=== PATIENT | male | born 1935 | race Caucasian/White ===

== ENCOUNTER 2020-08-06 18:33 | Emergency (ER) | payer SELFPAY ==
[2020-08-06 19:00] VITALS: BP 160/93; PULSE 82; TEMP 97.5
== END 2020-08-06 22:14 | disposition home or self-care (01) ==
LOC: FER 18:33
DX: R05 Cough (principal)
CPT/HCPCS: 71045-TC-FY; 99284-25; C9803; U0003

== ENCOUNTER 2020-08-17 19:39 | Inpatient (IN) | payer MEDICARE ==
[2020-08-17 21:11] LABS: BASO % 0.4 % (0-2.0); EOS % 0.2 % (0-4.5); HEMATOCRIT 42.4 % (35.4-49); HEMOGLOBIN 14.3 GM/dl (11.7-16.9); LYMPH % 9.4 % (8-40); MCH 30.1 pg (25.7-33.7); MCHC 33.7 g/dl (32.0-35.9); MEAN CELL VOLUME 89.4 fl (80-96); MEAN PLT VOLUME 8.1 fl (7.5-11.1); MONO % 5.4 % (3.8-10.2); NEUT % 84.6 % (42.8-82.8); PLATELET COUNT 219 K/MM3 (134-434); RBC 4.74 M/mm3 (4.00-5.60)
[2020-08-17 21:30] LABS: ALBUMIN 3.2 g/dl (3.4-5.0); BILIRUBIN,TOTAL 0.5 mg/dl (0.2-1); CREATININE 0.6 mg/dl (0.55-1.3); POTASSIUM 3.9 mmol/L (3.5-5.1); TOT PROT 6.1 g/dl (6.4-8.2)
[2020-08-17] MEDS ORDERED: AZITHROMYCIN IVPB 500 MG in DEXTROSE 5%-WATER - 250 ML IVPB ONE (23:28)
[2020-08-17] MEDS ORDERED: AZITHROMYCIN 500 MG VIAL IVPB ONE (23:32)
[2020-08-18] MEDS ORDERED: ACETAMINOPHEN 325 MG TABLET (FP) PO ONE (01:39)
[2020-08-18] MEDS ORDERED: ACETAMINOPHEN 325 MG TABLET (FP) ONE (01:47)
[2020-08-18] MEDS ORDERED: DEXAMETHASONE SOD PHOSPHATE 4 MG/1 ML VIAL IVPUSH ONE (04:04)
[2020-08-18] MEDS ORDERED: DEXAMETHASONE SOD PHOSPHATE 10 MG/1 ML VIAL ONE (04:09)
[2020-08-18] MEDS ORDERED: ALBUTEROL SO4 HFA INHALER IH PRN (06:38)
[2020-08-18] MEDS ORDERED: SODIUM CHLORIDE 1,000 ML IV STA (08:24)
[2020-08-18 09:58] LABS: HEMOGLOBIN 14.5 GM/dl (11.7-16.9); MCHC 34.5 g/dl (32.0-35.9); MEAN CELL VOLUME 89.6 fl (80-96); MEAN PLT VOLUME 8.6 fl (7.5-11.1); PLATELET COUNT 217 K/MM3 (134-434); RBC 4.68 M/mm3 (4.00-5.60); RDW 13.7 % (11.9-15.9); WHITE BLOOD COUNT 8.4 K/mm3 (4.0-10.8)
[2020-08-18] MEDS ORDERED: ASCORBIC ACID 250 MG TABLET (FP) PO SCH (10:00)
[2020-08-18 10:02] LABS: ALBUMIN 2.8 g/dl (3.4-5.0); BILIRUBIN,TOTAL 0.6 mg/dl (0.2-1); CREATININE 0.7 mg/dl (0.55-1.3); POTASSIUM 4.1 mmol/L (3.5-5.1); TOT PROT 5.8 g/dl (6.4-8.2)
[2020-08-18] MEDS: CHOLECALCIFEROL (VIT D3) 1,000 UNIT (25 MCG) TABLET PO SCH (10:48)
[2020-08-18] MEDS: ZINC SULFATE 220 MG CAPSULE (FP) PO SCH (10:48)
[2020-08-18 11:03] LABS: INR 1.42 (0.82-1.09); PROTHROMBIN TIME (PATIENT) 15.5 SEC (10.2-13.0)
[2020-08-18 11:11] LABS: N-TERMINAL BNP 1851.1 pg/ml (5-450)
[2020-08-18 11:20] LABS: PLATELET ESTIMATE ADEQUATE
[2020-08-18] MEDS: ENOXAPARIN NA (PORCINE) 40 MG/0.4 ML DISP.SYRIN SQ SCH (17:23)
[2020-08-18] MEDS ORDERED: PT OWN MED DRAWER 7, Y5N ONE (21:38)
[2020-08-18] MEDS: ASCORBIC ACID 500 MG TABLET (FP) PO SCH (22:00)
[2020-08-19 10:05] LABS: BASO % 0.2 % (0-2.0); HEMATOCRIT 41.8 % (35.4-49); HEMOGLOBIN 14.1 GM/dL (11.7-16.9); LYMPH % 6.1 % (8-40); MCHC 33.6 g/dl (32.0-35.9); MEAN CELL VOLUME 89.2 fl (80-96); MONO % 3.7 % (3.8-10.2); PLATELET COUNT 250 K/MM3 (134-434); RBC 4.69 M/mm3 (4.00-5.60); RDW 14.9 % (11.9-15.9); WHITE BLOOD COUNT 17.4 K/mm3 (4.0-10.0)
[2020-08-19] MEDS: ZINC SULFATE 220 MG CAPSULE (FP) PO SCH (10:14)
[2020-08-19] MEDS: DEXAMETHASONE SOD PHOSPHATE 4 MG/1 ML VIAL IVPUSH SCH (10:14)
[2020-08-19] MEDS: CHOLECALCIFEROL (VIT D3) 1,000 UNIT (25 MCG) TABLET PO SCH (10:14)
[2020-08-19] MEDS: ENOXAPARIN NA (PORCINE) 40 MG/0.4 ML DISP.SYRIN SQ SCH (10:14)
[2020-08-19] MEDS: ASCORBIC ACID 500 MG TABLET (FP) PO SCH ×2 (10:14→21:01)
[2020-08-19 10:25] LABS: POTASSIUM 3.7 mmol/L (3.5-5.1)
[2020-08-19 10:32] LABS: ALBUMIN 2.7 g/dl (3.4-5.0); BLOOD UREA NITROGEN 23.7 mg/dL (7-18); CALCIUM 8.6 mg/dL (8.5-10.1)
[2020-08-19 10:35] LABS: CREATININE 0.7 mg/dL (0.55-1.3)
[2020-08-19 10:37] LABS: TOT PROT 6.2 g/dl (6.4-8.2)
[2020-08-19 10:38] LABS: BILIRUBIN,TOTAL 0.8 mg/dL (0.2-1)
[2020-08-19 14:29] LABS: MAGNESIUM 1.9 mg/dL (1.8-2.4)
[2020-08-19] MEDS ORDERED: REMDESIVIR 200 MG in SODIUM CHLORIDE 210 ML IVPB ONE (16:00)
[2020-08-19] MEDS: amLODIPine BESYLATE 5 MG TABLET (FP) PO SCH (16:23)
[2020-08-19] MEDS: ASPIRIN 81 MG CHEWABLE TABLETS PO SCH (16:23)
[2020-08-19] MEDS ORDERED: HALOPERIDOL LACTATE 5 MG/ML IM ONE (16:29)
[2020-08-19] MEDS ORDERED: ACETAMINOPHEN 325 MG TABLET (FP) PO ONE (19:28)
[2020-08-19] MEDS: MELATONIN 5 MG TABLETS PO SCH (21:01)
[2020-08-20] MEDS ORDERED: POLYETHYLENE GLYCOL 3350 119 GM BTL PO ONE (02:03)
[2020-08-20] MEDS ORDERED: [UNRECOGNIZED DRUG - OTHER] PO SCH (10:00)
[2020-08-20] MEDS: DEXAMETHASONE SOD PHOSPHATE 4 MG/1 ML VIAL IVPUSH SCH (10:08)
[2020-08-20] MEDS: ZINC SULFATE 220 MG CAPSULE (FP) PO SCH (10:08)
[2020-08-20] MEDS: ASPIRIN 81 MG CHEWABLE TABLETS PO SCH (10:08)
[2020-08-20] MEDS: ENOXAPARIN NA (PORCINE) 40 MG/0.4 ML DISP.SYRIN SQ SCH (10:08)
[2020-08-20] MEDS: CHOLECALCIFEROL (VIT D3) 1,000 UNIT (25 MCG) TABLET PO SCH (10:08)
[2020-08-20] MEDS: amLODIPine BESYLATE 5 MG TABLET (FP) PO SCH (10:08)
[2020-08-20] MEDS: ASCORBIC ACID 500 MG TABLET (FP) PO SCH ×2 (10:08→21:31)
[2020-08-20 12:13] LABS: BASO % 0.1 % (0-2.0); HEMATOCRIT 37.3 % (35.4-49); HEMOGLOBIN 12.7 GM/dL (11.7-16.9); MCH 30.2 pg (25.7-33.7); MCHC 34.1 g/dl (32.0-35.9); MEAN CELL VOLUME 88.6 fl (80-96); MEAN PLT VOLUME 8.7 fl (7.5-11.1); MONO % 4.7 % (3.8-10.2); NEUT % 90.2 % (42.8-82.8); PLATELET COUNT 233 K/MM3 (134-434); RBC 4.21 M/mm3 (4.00-5.60); WHITE BLOOD COUNT 17.4 K/mm3 (4.0-10.0)
[2020-08-20 12:33] LABS: POTASSIUM 3.9 mmol/L (3.5-5.1)
[2020-08-20 12:40] LABS: CALCIUM 8.3 mg/dL (8.5-10.1)
[2020-08-20 12:41] LABS: ALBUMIN 2.5 g/dl (3.4-5.0); BLOOD UREA NITROGEN 27.1 mg/dL (7-18); MAGNESIUM 1.9 mg/dL (1.8-2.4)
[2020-08-20 12:43] LABS: BILIRUBIN,TOTAL 0.4 mg/dL (0.2-1); TOT PROT 5.8 g/dl (6.4-8.2)
[2020-08-20 12:44] LABS: CREATININE 0.6 mg/dL (0.55-1.3); PHOSPHOROUS 3.2 mg/dL (2.5-4.9)
[2020-08-20 12:53] VITALS: BMI 26.6
[2020-08-20] MEDS: REMDESIVIR 100 MG in SODIUM CHLORIDE 230 ML IVPB SCH (17:10)
[2020-08-20] MEDS: MELATONIN 5 MG TABLETS PO SCH (21:31)
[2020-08-21 09:32] LABS: BASO % 0.1 % (0-2.0); HEMATOCRIT 38.2 % (35.4-49); HEMOGLOBIN 13.1 GM/dL (11.7-16.9); LYMPH % 6.7 % (8-40); MCH 29.9 pg (25.7-33.7); MCHC 34.1 g/dl (32.0-35.9); MEAN CELL VOLUME 87.7 fl (80-96); MEAN PLT VOLUME 8.5 fl (7.5-11.1); MONO % 7.3 % (3.8-10.2); NEUT % 85.9 % (42.8-82.8); PLATELET COUNT 269 K/MM3 (134-434); RBC 4.36 M/mm3 (4.00-5.60); RDW 15.4 % (11.9-15.9); WHITE BLOOD COUNT 14.2 K/mm3 (4.0-10.0)
[2020-08-21 09:46] LABS: POTASSIUM 4.1 mmol/L (3.5-5.1)
[2020-08-21 10:00] LABS: ALBUMIN 2.3 g/dl (3.4-5.0); BLOOD UREA NITROGEN 29.3 mg/dL (7-18); MAGNESIUM 2.1 mg/dL (1.8-2.4)
[2020-08-21 10:03] LABS: BILIRUBIN,TOTAL 0.4 mg/dL (0.2-1); CREATININE 0.5 mg/dL (0.55-1.3); PHOSPHOROUS 3.9 mg/dL (2.5-4.9)
[2020-08-21 10:05] LABS: TOT PROT 5.6 g/dl (6.4-8.2)
[2020-08-21] MEDS ORDERED: PT OWN MED DRAWER 7, Y5N ONE (10:06)
[2020-08-21] MEDS: CHOLECALCIFEROL (VIT D3) 1,000 UNIT (25 MCG) TABLET PO SCH (10:25)
[2020-08-21] MEDS: amLODIPine BESYLATE 5 MG TABLET (FP) PO SCH (10:25)
[2020-08-21] MEDS: ASPIRIN 81 MG CHEWABLE TABLETS PO SCH (10:25)
[2020-08-21] MEDS: ENOXAPARIN NA (PORCINE) 40 MG/0.4 ML DISP.SYRIN SQ SCH (10:25)
[2020-08-21] MEDS: ASCORBIC ACID 500 MG TABLET (FP) PO SCH ×2 (10:25→21:45)
[2020-08-21] MEDS: ZINC SULFATE 220 MG CAPSULE (FP) PO SCH (10:25)
[2020-08-21] MEDS: DEXAMETHASONE SOD PHOSPHATE 4 MG/1 ML VIAL IVPUSH SCH (10:25)
[2020-08-21] MEDS: PANTOPRAZOLE SODIUM 40 MG VIAL IVPUSH SCH (15:54)
[2020-08-21] MEDS: TAMSULOSIN HCL 0.4 MG CAP PO SCH (15:54)
[2020-08-21] MEDS: REMDESIVIR 100 MG in SODIUM CHLORIDE 230 ML IVPB SCH (21:44)
[2020-08-21] MEDS: MELATONIN 5 MG TABLETS PO SCH (21:45)
[2020-08-22 09:18] LABS: BASO % 0.2 % (0-2.0); HEMATOCRIT 38.1 % (35.4-49); HEMOGLOBIN 12.8 GM/dL (11.7-16.9); MCH 29.9 pg (25.7-33.7); MCHC 33.7 g/dl (32.0-35.9); MEAN CELL VOLUME 88.8 fl (80-96); MEAN PLT VOLUME 8.9 fl (7.5-11.1); MONO % 8.1 % (3.8-10.2); NEUT % 84.7 % (42.8-82.8); PLATELET COUNT 291 K/MM3 (134-434); RBC 4.29 M/mm3 (4.00-5.60); RDW 15.1 % (11.9-15.9)
[2020-08-22] MEDS: TAMSULOSIN HCL 0.4 MG CAP PO SCH (09:30)
[2020-08-22 09:44] LABS: POTASSIUM 4.1 mmol/L (3.5-5.1)
[2020-08-22 09:59] LABS: BILIRUBIN,TOTAL 0.2 mg/dL (0.2-1)
[2020-08-22 10:00] LABS: TOT PROT 5.5 g/dl (6.4-8.2)
[2020-08-22 10:01] LABS: CREATININE 0.6 mg/dL (0.55-1.3)
[2020-08-22 10:02] LABS: ALBUMIN 2.3 g/dl (3.4-5.0); BLOOD UREA NITROGEN 37.6 mg/dL (7-18)
[2020-08-22 10:04] LABS: MAGNESIUM 2.2 mg/dL (1.8-2.4)
[2020-08-22 10:05] LABS: PHOSPHOROUS 4.5 mg/dL (2.5-4.9)
[2020-08-22] MEDS: ZINC SULFATE 220 MG CAPSULE (FP) PO SCH (10:52)
[2020-08-22] MEDS: ASCORBIC ACID 500 MG TABLET (FP) PO SCH ×2 (10:52→22:14)
[2020-08-22] MEDS: CHOLECALCIFEROL (VIT D3) 1,000 UNIT (25 MCG) TABLET PO SCH (10:52)
[2020-08-22] MEDS: PANTOPRAZOLE SODIUM 40 MG VIAL IVPUSH SCH (10:52)
[2020-08-22] MEDS: amLODIPine BESYLATE 5 MG TABLET (FP) PO SCH (10:52)
[2020-08-22] MEDS: ASPIRIN 81 MG CHEWABLE TABLETS PO SCH (10:52)
[2020-08-22] MEDS: DEXAMETHASONE SOD PHOSPHATE 4 MG/1 ML VIAL IVPUSH SCH (10:52)
[2020-08-22] MEDS: ENOXAPARIN NA (PORCINE) 40 MG/0.4 ML DISP.SYRIN SQ SCH (10:53)
[2020-08-22] MEDS: REMDESIVIR 100 MG in SODIUM CHLORIDE 230 ML IVPB SCH (17:26)
[2020-08-22] MEDS: MELATONIN 5 MG TABLETS PO SCH (22:14)
[2020-08-23] MEDS: ASPIRIN 81 MG CHEWABLE TABLETS PO SCH (10:28)
[2020-08-23] MEDS: TAMSULOSIN HCL 0.4 MG CAP PO SCH (10:28)
[2020-08-23] MEDS: ENOXAPARIN NA (PORCINE) 40 MG/0.4 ML DISP.SYRIN SQ SCH (10:28)
[2020-08-23] MEDS: PANTOPRAZOLE SODIUM 40 MG VIAL IVPUSH SCH (10:28)
[2020-08-23] MEDS: ASCORBIC ACID 500 MG TABLET (FP) PO SCH ×2 (10:28→22:00)
[2020-08-23] MEDS: amLODIPine BESYLATE 5 MG TABLET (FP) PO SCH (10:28)
[2020-08-23] MEDS: ZINC SULFATE 220 MG CAPSULE (FP) PO SCH (10:28)
[2020-08-23] MEDS: CHOLECALCIFEROL (VIT D3) 1,000 UNIT (25 MCG) TABLET PO SCH (10:28)
[2020-08-23] MEDS: DEXAMETHASONE SOD PHOSPHATE 4 MG/1 ML VIAL IVPUSH SCH (10:29)
[2020-08-23 11:30] LABS: HEMATOCRIT 36.9 % (35.4-49); HEMOGLOBIN 12.4 GM/dL (11.7-16.9); LYMPH % 6.8 % (8-40); MCH 29.9 pg (25.7-33.7); MCHC 33.7 g/dl (32.0-35.9); MEAN CELL VOLUME 88.8 fl (80-96); MEAN PLT VOLUME 8.9 fl (7.5-11.1); MONO % 7.5 % (3.8-10.2); NEUT % 85.7 % (42.8-82.8); PLATELET COUNT 287 K/MM3 (134-434); RBC 4.15 M/mm3 (4.00-5.60); RDW 15.6 % (11.9-15.9); WHITE BLOOD COUNT 15.1 K/mm3 (4.0-10.0)
[2020-08-23 11:58] LABS: POTASSIUM 3.8 mmol/L (3.5-5.1)
[2020-08-23 12:00] LABS: ALBUMIN 2.2 g/dl (3.4-5.0); CALCIUM 8.1 mg/dL (8.5-10.1)
[2020-08-23 12:01] LABS: BLOOD UREA NITROGEN 37.2 mg/dL (7-18); MAGNESIUM 2.1 mg/dL (1.8-2.4)
[2020-08-23 12:03] LABS: CREATININE 0.6 mg/dL (0.55-1.3)
[2020-08-23 12:05] LABS: BILIRUBIN,TOTAL 0.3 mg/dL (0.2-1)
[2020-08-23 12:11] LABS: ANISOCYTOSIS 0; MACROCYTOSIS 0; PLATELET ESTIMATE NORMAL
[2020-08-23] MEDS: REMDESIVIR 100 MG in SODIUM CHLORIDE 230 ML IVPB SCH (16:51)
[2020-08-23] MEDS: MELATONIN 5 MG TABLETS PO SCH (21:59)
[2020-08-23] MEDS: ENOXAPARIN NA (PORCINE) 80 MG/0.8 ML DISP.SYRIN SQ SCH (22:00)
[2020-08-24 09:03] LABS: BASO % 0.1 % (0-2.0); HEMATOCRIT 37.9 % (35.4-49); HEMOGLOBIN 12.9 GM/dL (11.7-16.9); LYMPH % 10.2 % (8-40); MCH 30.1 pg (25.7-33.7); MEAN CELL VOLUME 88.4 fl (80-96); MEAN PLT VOLUME 8.8 fl (7.5-11.1); MONO % 9.3 % (3.8-10.2); NEUT % 80.4 % (42.8-82.8); PLATELET COUNT 315 K/MM3 (134-434); RBC 4.29 M/mm3 (4.00-5.60); RDW 15.6 % (11.9-15.9)
[2020-08-24 09:28] LABS: POTASSIUM 4.1 mmol/L (3.5-5.1)
[2020-08-24 09:40] LABS: ALBUMIN 2.2 g/dl (3.4-5.0); BLOOD UREA NITROGEN 32.4 mg/dL (7-18)
[2020-08-24 09:42] LABS: CREATININE 0.5 mg/dL (0.55-1.3)
[2020-08-24 09:43] LABS: BILIRUBIN,TOTAL 0.5 mg/dL (0.2-1); PHOSPHOROUS 3.5 mg/dL (2.5-4.9)
[2020-08-24 09:44] LABS: CALCIUM 7.9 mg/dL (8.5-10.1); MAGNESIUM 2.1 mg/dL (1.8-2.4)
[2020-08-24] MEDS: DEXAMETHASONE SOD PHOSPHATE 4 MG/1 ML VIAL IVPUSH SCH (10:34)
[2020-08-24] MEDS: ASPIRIN 81 MG CHEWABLE TABLETS PO SCH (10:35)
[2020-08-24] MEDS: PANTOPRAZOLE SODIUM 40 MG VIAL IVPUSH SCH (10:35)
[2020-08-24] MEDS: CHOLECALCIFEROL (VIT D3) 1,000 UNIT (25 MCG) TABLET PO SCH (10:35)
[2020-08-24] MEDS: ENOXAPARIN NA (PORCINE) 80 MG/0.8 ML DISP.SYRIN SQ SCH ×2 (10:35→22:12)
[2020-08-24] MEDS: TAMSULOSIN HCL 0.4 MG CAP PO SCH (10:36)
[2020-08-24] MEDS: ASCORBIC ACID 500 MG TABLET (FP) PO SCH ×2 (10:36→22:12)
[2020-08-24] MEDS: amLODIPine BESYLATE 5 MG TABLET (FP) PO SCH (10:36)
[2020-08-24] MEDS: ZINC SULFATE 220 MG CAPSULE (FP) PO SCH (10:36)
[2020-08-24 11:57] LABS: ANISOCYTOSIS 1+; MACROCYTOSIS 0; PLATELET ESTIMATE NORMAL
[2020-08-24] MEDS: MELATONIN 5 MG TABLETS PO SCH (22:12)
[2020-08-25] MEDS: TAMSULOSIN HCL 0.4 MG CAP PO SCH (08:52)
[2020-08-25 10:10] LABS: BASO % 0.1 % (0-2.0); HEMATOCRIT 39.1 % (35.4-49); HEMOGLOBIN 13.2 GM/dL (11.7-16.9); LYMPH % 9.3 % (8-40); MCH 29.8 pg (25.7-33.7); MCHC 33.8 g/dl (32.0-35.9); MEAN CELL VOLUME 88.2 fl (80-96); MEAN PLT VOLUME 9.1 fl (7.5-11.1); MONO % 7.3 % (3.8-10.2); NEUT % 83.3 % (42.8-82.8); PLATELET COUNT 339 K/MM3 (134-434); RBC 4.44 M/mm3 (4.00-5.60); RDW 15.3 % (11.9-15.9); WHITE BLOOD COUNT 17.6 K/mm3 (4.0-10.0)
[2020-08-25 10:41] LABS: POTASSIUM 4.4 mmol/L (3.5-5.1)
[2020-08-25 10:45] LABS: ALBUMIN 2.2 g/dl (3.4-5.0); BLOOD UREA NITROGEN 30.7 mg/dL (7-18); CALCIUM 7.9 mg/dL (8.5-10.1); MAGNESIUM 2.1 mg/dL (1.8-2.4)
[2020-08-25 10:48] LABS: CREATININE 0.6 mg/dL (0.55-1.3); PHOSPHOROUS 3.4 mg/dL (2.5-4.9)
[2020-08-25 10:50] LABS: TOT PROT 5.3 g/dl (6.4-8.2)
[2020-08-25 11:03] LABS: BILIRUBIN,TOTAL 0.5 mg/dL (0.2-1)
[2020-08-25 11:46] LABS: ANISOCYTOSIS 0; MACROCYTOSIS 0; PLATELET ESTIMATE NORMAL
[2020-08-25] MEDS: ASPIRIN 81 MG CHEWABLE TABLETS PO SCH (11:49)
[2020-08-25] MEDS: amLODIPine BESYLATE 5 MG TABLET (FP) PO SCH (11:49)
[2020-08-25] MEDS: CHOLECALCIFEROL (VIT D3) 1,000 UNIT (25 MCG) TABLET PO SCH (11:49)
[2020-08-25] MEDS: ENOXAPARIN NA (PORCINE) 80 MG/0.8 ML DISP.SYRIN SQ SCH ×2 (11:50→21:34)
[2020-08-25] MEDS: ASCORBIC ACID 500 MG TABLET (FP) PO SCH ×2 (11:50→21:34)
[2020-08-25] MEDS: DEXAMETHASONE SOD PHOSPHATE 4 MG/1 ML VIAL IVPUSH SCH (11:50)
[2020-08-25] MEDS: PANTOPRAZOLE SODIUM 40 MG VIAL IVPUSH SCH (11:50)
[2020-08-25] MEDS: ZINC SULFATE 220 MG CAPSULE (FP) PO SCH (11:50)
[2020-08-25] MEDS ORDERED: PT OWN MED DRAWER 7, Y5N ONE ×2 (15:10→21:29)
[2020-08-25] MEDS: BUDESONIDE/FORMETEROL FUMARATE 160/4.5 mcg INHALER IH SCH ×2 (15:22→21:35)
[2020-08-25] MEDS: MELATONIN 5 MG TABLETS PO SCH (21:34)
[2020-08-26] MEDS: DEXAMETHASONE SOD PHOSPHATE 4 MG/1 ML VIAL IVPUSH SCH (10:46)
[2020-08-26] MEDS: ASPIRIN 81 MG CHEWABLE TABLETS PO SCH (10:47)
[2020-08-26] MEDS: ZINC SULFATE 220 MG CAPSULE (FP) PO SCH (10:47)
[2020-08-26] MEDS: ASCORBIC ACID 500 MG TABLET (FP) PO SCH ×2 (10:47→22:14)
[2020-08-26] MEDS: ENOXAPARIN NA (PORCINE) 80 MG/0.8 ML DISP.SYRIN SQ SCH ×2 (10:48→22:14)
[2020-08-26] MEDS: TAMSULOSIN HCL 0.4 MG CAP PO SCH (10:48)
[2020-08-26] MEDS: amLODIPine BESYLATE 5 MG TABLET (FP) PO SCH (10:48)
[2020-08-26] MEDS: PANTOPRAZOLE 40 MG TABLET PO SCH (10:49)
[2020-08-26] MEDS: BUDESONIDE/FORMETEROL FUMARATE 160/4.5 mcg INHALER IH SCH ×2 (10:49→22:14)
[2020-08-26] MEDS: CHOLECALCIFEROL (VIT D3) 1,000 UNIT (25 MCG) TABLET PO SCH (10:50)
[2020-08-26 12:44] LABS: BASO % 0.8 % (0-2.0); HEMATOCRIT 39.7 % (35.4-49); HEMOGLOBIN 13.5 GM/dL (11.7-16.9); LYMPH % 7.7 % (8-40); MCH 30.4 pg (25.7-33.7); MEAN CELL VOLUME 89.3 fl (80-96); MEAN PLT VOLUME 9.2 fl (7.5-11.1); MONO % 4.9 % (3.8-10.2); NEUT % 86.6 % (42.8-82.8); PLATELET COUNT 349 K/MM3 (134-434); RBC 4.44 M/mm3 (4.00-5.60); RDW 15.3 % (11.9-15.9); WHITE BLOOD COUNT 15.5 K/mm3 (4.0-10.0)
[2020-08-26 13:11] LABS: POTASSIUM 4.2 mmol/L (3.5-5.1)
[2020-08-26 13:23] LABS: CALCIUM 8.1 mg/dL (8.5-10.1)
[2020-08-26 13:24] LABS: ALBUMIN 2.2 g/dl (3.4-5.0); BLOOD UREA NITROGEN 34.7 mg/dL (7-18)
[2020-08-26 13:27] LABS: CREATININE 0.7 mg/dL (0.55-1.3); PHOSPHOROUS 3.7 mg/dL (2.5-4.9)
[2020-08-26 13:28] LABS: BILIRUBIN,TOTAL 0.5 mg/dL (0.2-1)
[2020-08-26 13:30] LABS: TOT PROT 5.3 g/dl (6.4-8.2)
[2020-08-26 14:01] LABS: ANISOCYTOSIS 0; MACROCYTOSIS 0; PLATELET ESTIMATE NORMAL
[2020-08-26] MEDS: MELATONIN 5 MG TABLETS PO SCH (22:14)
[2020-08-27] MEDS: ASCORBIC ACID 500 MG TABLET (FP) PO SCH ×2 (10:22→22:34)
[2020-08-27] MEDS: TAMSULOSIN HCL 0.4 MG CAP PO SCH (10:22)
[2020-08-27] MEDS: ENOXAPARIN NA (PORCINE) 80 MG/0.8 ML DISP.SYRIN SQ SCH ×2 (10:24→22:34)
[2020-08-27] MEDS: ASPIRIN 81 MG CHEWABLE TABLETS PO SCH (10:24)
[2020-08-27] MEDS: ZINC SULFATE 220 MG CAPSULE (FP) PO SCH (10:24)
[2020-08-27] MEDS: amLODIPine BESYLATE 5 MG TABLET (FP) PO SCH (10:24)
[2020-08-27] MEDS: PANTOPRAZOLE 40 MG TABLET PO SCH (10:24)
[2020-08-27] MEDS: CHOLECALCIFEROL (VIT D3) 1,000 UNIT (25 MCG) TABLET PO SCH (10:25)
[2020-08-27] MEDS: DEXAMETHASONE SOD PHOSPHATE 4 MG/1 ML VIAL IVPUSH SCH (10:25)
[2020-08-27] MEDS: BUDESONIDE/FORMETEROL FUMARATE 160/4.5 mcg INHALER IH SCH ×2 (10:25→22:34)
[2020-08-27] MEDS: MELATONIN 5 MG TABLETS PO SCH (22:34)
[2020-08-28] MEDS: TAMSULOSIN HCL 0.4 MG CAP PO SCH (09:24)
[2020-08-28] MEDS: amLODIPine BESYLATE 5 MG TABLET (FP) PO SCH (09:25)
[2020-08-28] MEDS: ASCORBIC ACID 500 MG TABLET (FP) PO SCH ×2 (09:25→21:08)
[2020-08-28] MEDS: PANTOPRAZOLE 40 MG TABLET PO SCH (09:25)
[2020-08-28] MEDS: ENOXAPARIN NA (PORCINE) 80 MG/0.8 ML DISP.SYRIN SQ SCH ×2 (09:25→21:08)
[2020-08-28] MEDS: ZINC SULFATE 220 MG CAPSULE (FP) PO SCH (09:25)
[2020-08-28] MEDS: ASPIRIN 81 MG CHEWABLE TABLETS PO SCH (09:25)
[2020-08-28] MEDS: CHOLECALCIFEROL (VIT D3) 1,000 UNIT (25 MCG) TABLET PO SCH (09:26)
[2020-08-28] MEDS: DEXAMETHASONE SOD PHOSPHATE 4 MG/1 ML VIAL IVPUSH SCH (09:26)
[2020-08-28 09:44] LABS: BASO % 0.7 % (0-2.0); HEMATOCRIT 41.5 % (35.4-49); HEMOGLOBIN 13.9 GM/dL (11.7-16.9); LYMPH % 5.9 % (8-40); MCH 29.7 pg (25.7-33.7); MCHC 33.5 g/dl (32.0-35.9); MEAN CELL VOLUME 88.7 fl (80-96); MEAN PLT VOLUME 8.8 fl (7.5-11.1); MONO % 4.8 % (3.8-10.2); NEUT % 88.6 % (42.8-82.8); PLATELET COUNT 359 K/MM3 (134-434); RBC 4.68 M/mm3 (4.00-5.60); RDW 15.6 % (11.9-15.9); WHITE BLOOD COUNT 18.2 K/mm3 (4.0-10.0)
[2020-08-28 09:58] LABS: POTASSIUM 3.9 mmol/L (3.5-5.1)
[2020-08-28] MEDS: BUDESONIDE/FORMETEROL FUMARATE 160/4.5 mcg INHALER IH SCH ×2 (10:03→21:08)
[2020-08-28 10:15] LABS: CALCIUM 7.9 mg/dL (8.5-10.1)
[2020-08-28 10:16] LABS: ALBUMIN 2.2 g/dl (3.4-5.0); BLOOD UREA NITROGEN 30.4 mg/dL (7-18); MAGNESIUM 2.2 mg/dL (1.8-2.4)
[2020-08-28 10:19] LABS: CREATININE 0.7 mg/dL (0.55-1.3)
[2020-08-28 10:20] LABS: BILIRUBIN,TOTAL 0.8 mg/dL (0.2-1); TOT PROT 5.4 g/dl (6.4-8.2)
[2020-08-28] MEDS: MELATONIN 5 MG TABLETS PO SCH (21:08)
[2020-08-29 08:53] LABS: BASO % 0.2 % (0-2.0); HEMATOCRIT 38.7 % (35.4-49); HEMOGLOBIN 13.3 GM/dL (11.7-16.9); LYMPH % 6.5 % (8-40); MCH 29.9 pg (25.7-33.7); MCHC 34.3 g/dl (32.0-35.9); MEAN CELL VOLUME 87.3 fl (80-96); MEAN PLT VOLUME 8.7 fl (7.5-11.1); NEUT % 86.3 % (42.8-82.8); PLATELET COUNT 335 K/MM3 (134-434); RBC 4.43 M/mm3 (4.00-5.60); RDW 15.6 % (11.9-15.9); WHITE BLOOD COUNT 18.4 K/mm3 (4.0-10.0)
[2020-08-29 09:16] LABS: POTASSIUM 4.4 mmol/L (3.5-5.1)
[2020-08-29 09:29] LABS: CALCIUM 7.9 mg/dL (8.5-10.1)
[2020-08-29 09:30] LABS: MAGNESIUM 2.3 mg/dL (1.8-2.4)
[2020-08-29 09:32] LABS: CREATININE 0.5 mg/dL (0.55-1.3)
[2020-08-29 09:33] LABS: PHOSPHOROUS 3.5 mg/dL (2.5-4.9)
[2020-08-29] MEDS: ASCORBIC ACID 500 MG TABLET (FP) PO SCH ×2 (09:33→21:32)
[2020-08-29 09:34] LABS: BILIRUBIN,TOTAL 0.5 mg/dL (0.2-1); TOT PROT 4.8 g/dl (6.4-8.2)
[2020-08-29] MEDS: amLODIPine BESYLATE 5 MG TABLET (FP) PO SCH (09:34)
[2020-08-29] MEDS: ENOXAPARIN NA (PORCINE) 80 MG/0.8 ML DISP.SYRIN SQ SCH ×2 (09:34→21:33)
[2020-08-29] MEDS: TAMSULOSIN HCL 0.4 MG CAP PO SCH (09:34)
[2020-08-29] MEDS: ASPIRIN 81 MG CHEWABLE TABLETS PO SCH (09:34)
[2020-08-29] MEDS: PANTOPRAZOLE 40 MG TABLET PO SCH (09:34)
[2020-08-29] MEDS: ZINC SULFATE 220 MG CAPSULE (FP) PO SCH (09:34)
[2020-08-29] MEDS: BUDESONIDE/FORMETEROL FUMARATE 160/4.5 mcg INHALER IH SCH ×2 (09:35→21:33)
[2020-08-29] MEDS: CHOLECALCIFEROL (VIT D3) 1,000 UNIT (25 MCG) TABLET PO SCH (09:35)
[2020-08-29] MEDS: DEXAMETHASONE SOD PHOSPHATE 4 MG/1 ML VIAL IVPUSH SCH (09:35)
[2020-08-29 09:39] LABS: BLOOD UREA NITROGEN 29.4 mg/dL (7-18)
[2020-08-29 17:56] LABS: HEMATOCRIT 40.3 % (35.4-49); HEMOGLOBIN 13.4 GM/dL (11.7-16.9); MCH 29.8 pg (25.7-33.7); MCHC 33.2 g/dl (32.0-35.9); MEAN CELL VOLUME 89.7 fl (80-96); MEAN PLT VOLUME 8.4 fl (7.5-11.1); PLATELET COUNT 328 K/MM3 (134-434); RBC 4.49 M/mm3 (4.00-5.60); RDW 15.1 % (11.9-15.9); WHITE BLOOD COUNT 19.1 K/mm3 (4.0-10.0)
[2020-08-29] MEDS: MELATONIN 5 MG TABLETS PO SCH (21:32)
[2020-08-30 10:13] LABS: BASO % 0.2 % (0-2.0); HEMATOCRIT 41.2 % (35.4-49); HEMOGLOBIN 13.9 GM/dL (11.7-16.9); LYMPH % 7.5 % (8-40); MCH 29.9 pg (25.7-33.7); MCHC 33.9 g/dl (32.0-35.9); MEAN CELL VOLUME 88.3 fl (80-96); MEAN PLT VOLUME 8.7 fl (7.5-11.1); MONO % 3.6 % (3.8-10.2); NEUT % 88.7 % (42.8-82.8); PLATELET COUNT 329 K/MM3 (134-434); RBC 4.66 M/mm3 (4.00-5.60); RDW 15.7 % (11.9-15.9); WHITE BLOOD COUNT 17.7 K/mm3 (4.0-10.0)
[2020-08-30 10:39] LABS: MAGNESIUM 2.2 mg/dL (1.8-2.4)
[2020-08-30 10:43] LABS: PHOSPHOROUS 3.3 mg/dL (2.5-4.9)
[2020-08-30] MEDS: ENOXAPARIN NA (PORCINE) 80 MG/0.8 ML DISP.SYRIN SQ SCH (11:06)
[2020-08-30] MEDS: CHOLECALCIFEROL (VIT D3) 1,000 UNIT (25 MCG) TABLET PO SCH (11:07)
[2020-08-30] MEDS: DEXAMETHASONE SOD PHOSPHATE 4 MG/1 ML VIAL IVPUSH SCH (11:07)
[2020-08-30] MEDS: ASPIRIN 81 MG CHEWABLE TABLETS PO SCH (11:07)
[2020-08-30] MEDS: PANTOPRAZOLE 40 MG TABLET PO SCH (11:07)
[2020-08-30] MEDS: BUDESONIDE/FORMETEROL FUMARATE 160/4.5 mcg INHALER IH SCH ×2 (11:07→21:37)
[2020-08-30] MEDS: amLODIPine BESYLATE 5 MG TABLET (FP) PO SCH (11:07)
[2020-08-30] MEDS: ASCORBIC ACID 500 MG TABLET (FP) PO SCH ×2 (11:07→21:37)
[2020-08-30] MEDS: TAMSULOSIN HCL 0.4 MG CAP PO SCH (11:07)
[2020-08-30] MEDS: ZINC SULFATE 220 MG CAPSULE (FP) PO SCH (11:07)
[2020-08-30] MEDS: MELATONIN 5 MG TABLETS PO SCH (21:37)
[2020-08-31 09:36] LABS: BASO % 0.2 % (0-2.0); HEMOGLOBIN 13.4 GM/dL (11.7-16.9); LYMPH % 6.8 % (8-40); MCH 30.2 pg (25.7-33.7); MCHC 34.4 g/dl (32.0-35.9); MEAN CELL VOLUME 87.9 fl (80-96); MEAN PLT VOLUME 8.9 fl (7.5-11.1); MONO % 7.1 % (3.8-10.2); NEUT % 85.9 % (42.8-82.8); PLATELET COUNT 293 K/MM3 (134-434); RBC 4.44 M/mm3 (4.00-5.60); RDW 15.4 % (11.9-15.9); WHITE BLOOD COUNT 14.5 K/mm3 (4.0-10.0)
[2020-08-31 09:52] LABS: POTASSIUM 4.2 mmol/L (3.5-5.1)
[2020-08-31] MEDS: ZINC SULFATE 220 MG CAPSULE (FP) PO SCH (10:08)
[2020-08-31] MEDS: DEXAMETHASONE 4 MG TABLET (FP) PO SCH (10:09)
[2020-08-31] MEDS: ASPIRIN 81 MG CHEWABLE TABLETS PO SCH (10:09)
[2020-08-31] MEDS: amLODIPine BESYLATE 5 MG TABLET (FP) PO SCH (10:09)
[2020-08-31] MEDS: TAMSULOSIN HCL 0.4 MG CAP PO SCH (10:09)
[2020-08-31] MEDS: ASCORBIC ACID 500 MG TABLET (FP) PO SCH ×2 (10:09→22:11)
[2020-08-31] MEDS: PANTOPRAZOLE 40 MG TABLET PO SCH (10:09)
[2020-08-31] MEDS: CHOLECALCIFEROL (VIT D3) 1,000 UNIT (25 MCG) TABLET PO SCH (10:10)
[2020-08-31] MEDS: BUDESONIDE/FORMETEROL FUMARATE 160/4.5 mcg INHALER IH SCH ×2 (10:10→22:11)
[2020-08-31] MEDS: ENOXAPARIN NA (PORCINE) 40 MG/0.4 ML DISP.SYRIN SQ SCH (10:10)
[2020-08-31 10:43] LABS: ALBUMIN 2.1 g/dl (3.4-5.0)
[2020-08-31 10:44] LABS: CALCIUM 7.8 mg/dL (8.5-10.1)
[2020-08-31 10:45] LABS: BLOOD UREA NITROGEN 28.8 mg/dL (7-18); MAGNESIUM 2.2 mg/dL (1.8-2.4)
[2020-08-31 10:48] LABS: BILIRUBIN,TOTAL 0.5 mg/dL (0.2-1)
[2020-08-31 10:49] LABS: PHOSPHOROUS 3.5 mg/dL (2.5-4.9)
[2020-08-31 10:52] LABS: CREATININE 0.5 mg/dL (0.55-1.3)
[2020-08-31] MEDS ORDERED: PT OWN MED DRAWER 7, Y5N ONE (19:52)
[2020-08-31] MEDS: MELATONIN 5 MG TABLETS PO SCH (22:11)
[2020-09-01] MEDS ORDERED: SODIUM CHLORIDE FOR INHALATION 3 ML VIAL.NEB IH PRN (00:53)
[2020-09-01 08:52] LABS: BASO % 0.7 % (0-2.0); HEMATOCRIT 39.4 % (35.4-49); HEMOGLOBIN 13.4 GM/dL (11.7-16.9); LYMPH % 6.9 % (8-40); MCH 30.1 pg (25.7-33.7); MEAN CELL VOLUME 88.6 fl (80-96); MEAN PLT VOLUME 8.9 fl (7.5-11.1); NEUT % 85.4 % (42.8-82.8); RBC 4.44 M/mm3 (4.00-5.60); RDW 15.8 % (11.9-15.9); WHITE BLOOD COUNT 18.1 K/mm3 (4.0-10.0)
[2020-09-01 09:06] LABS: POTASSIUM 4.4 mmol/L (3.5-5.1)
[2020-09-01 09:17] LABS: BLOOD UREA NITROGEN 26.4 mg/dL (7-18); CALCIUM 7.7 mg/dL (8.5-10.1)
[2020-09-01 09:18] LABS: CREATININE 0.5 mg/dL (0.55-1.3)
[2020-09-01 09:19] LABS: PHOSPHOROUS 3.6 mg/dL (2.5-4.9)
[2020-09-01 09:20] LABS: BILIRUBIN,TOTAL 0.4 mg/dL (0.2-1); TOT PROT 4.9 g/dl (6.4-8.2)
[2020-09-01 09:22] LABS: MAGNESIUM 2.2 mg/dL (1.8-2.4)
[2020-09-01] MEDS: amLODIPine BESYLATE 5 MG TABLET (FP) PO SCH (09:26)
[2020-09-01] MEDS: DEXAMETHASONE 4 MG TABLET (FP) PO SCH (09:26)
[2020-09-01] MEDS: ASPIRIN 81 MG CHEWABLE TABLETS PO SCH (09:26)
[2020-09-01] MEDS: PANTOPRAZOLE 40 MG TABLET PO SCH (09:27)
[2020-09-01] MEDS: ENOXAPARIN NA (PORCINE) 40 MG/0.4 ML DISP.SYRIN SQ SCH (09:27)
[2020-09-01] MEDS: ZINC SULFATE 220 MG CAPSULE (FP) PO SCH (09:27)
[2020-09-01] MEDS: TAMSULOSIN HCL 0.4 MG CAP PO SCH (09:27)
[2020-09-01] MEDS: ASCORBIC ACID 500 MG TABLET (FP) PO SCH ×2 (09:27→21:26)
[2020-09-01] MEDS: CHOLECALCIFEROL (VIT D3) 1,000 UNIT (25 MCG) TABLET PO SCH (09:28)
[2020-09-01] MEDS: BUDESONIDE/FORMETEROL FUMARATE 160/4.5 mcg INHALER IH SCH ×2 (09:29→21:26)
[2020-09-01 10:52] LABS: PLATELET COUNT 299 K/MM3 (134-434)
[2020-09-01 11:46] LABS: ANISOCYTOSIS 0; MACROCYTOSIS 0; PLATELET ESTIMATE NORMAL
[2020-09-01] MEDS: ACETAMINOPHEN 325 MG TABLET (FP) PO PRN (16:01)
[2020-09-01] MEDS: MELATONIN 5 MG TABLETS PO SCH (21:26)
[2020-09-02] MEDS: TAMSULOSIN HCL 0.4 MG CAP PO SCH (08:45)
[2020-09-02] MEDS: AMINO ACIDS/PROTEIN HYDROLYS 30 ML LIQUID.PKT PO SCH (08:45)
[2020-09-02] MEDS: ASPIRIN 81 MG CHEWABLE TABLETS PO SCH (10:08)
[2020-09-02] MEDS: PANTOPRAZOLE 40 MG TABLET PO SCH (10:08)
[2020-09-02] MEDS: ENOXAPARIN NA (PORCINE) 40 MG/0.4 ML DISP.SYRIN SQ SCH (10:08)
[2020-09-02] MEDS: ASCORBIC ACID 500 MG TABLET (FP) PO SCH ×2 (10:09→21:23)
[2020-09-02] MEDS: ZINC SULFATE 220 MG CAPSULE (FP) PO SCH (10:09)
[2020-09-02] MEDS: amLODIPine BESYLATE 5 MG TABLET (FP) PO SCH (10:09)
[2020-09-02] MEDS: CHOLECALCIFEROL (VIT D3) 1,000 UNIT (25 MCG) TABLET PO SCH (10:09)
[2020-09-02] MEDS: DEXAMETHASONE 4 MG TABLET (FP) PO SCH (10:09)
[2020-09-02] MEDS: BUDESONIDE/FORMETEROL FUMARATE 160/4.5 mcg INHALER IH SCH ×2 (10:11→21:24)
[2020-09-02] MEDS: POLYETHYLENE GLYCOL 3350 119 GM BTL PO SCH (18:59)
[2020-09-02] MEDS: SENNOSIDES 8.6MG TABLET (FP) PO SCH (21:23)
[2020-09-02] MEDS: MELATONIN 5 MG TABLETS PO SCH (21:24)
[2020-09-03] MEDS: SODIUM CHLORIDE NASAL SPRAY 44 ML BOTTLE NS PRN ×2 (06:31→13:39)
[2020-09-03] MEDS: TAMSULOSIN HCL 0.4 MG CAP PO SCH (08:50)
[2020-09-03] MEDS: AMINO ACIDS/PROTEIN HYDROLYS 30 ML LIQUID.PKT PO SCH (08:50)
[2020-09-03] MEDS: ASPIRIN 81 MG CHEWABLE TABLETS PO SCH (09:19)
[2020-09-03] MEDS: PANTOPRAZOLE 40 MG TABLET PO SCH (09:19)
[2020-09-03] MEDS: ASCORBIC ACID 500 MG TABLET (FP) PO SCH ×2 (09:20→21:57)
[2020-09-03] MEDS: DEXAMETHASONE 4 MG TABLET (FP) PO SCH (09:20)
[2020-09-03] MEDS: ZINC SULFATE 220 MG CAPSULE (FP) PO SCH (09:20)
[2020-09-03] MEDS: POLYETHYLENE GLYCOL 3350 119 GM BTL PO SCH (09:21)
[2020-09-03] MEDS: CHOLECALCIFEROL (VIT D3) 1,000 UNIT (25 MCG) TABLET PO SCH (09:22)
[2020-09-03] MEDS: ENOXAPARIN NA (PORCINE) 40 MG/0.4 ML DISP.SYRIN SQ SCH (09:28)
[2020-09-03] MEDS: BUDESONIDE/FORMETEROL FUMARATE 160/4.5 mcg INHALER IH SCH ×2 (09:29→21:58)
[2020-09-03] MEDS: amLODIPine BESYLATE 5 MG TABLET (FP) PO SCH (10:16)
[2020-09-03 12:57] LABS: BASO % 0.2 % (0-2.0); EOS % 0.1 % (0-4.5); HEMATOCRIT 38.2 % (35.4-49); HEMOGLOBIN 12.8 GM/dL (11.7-16.9); LYMPH % 6.8 % (8-40); MCH 29.9 pg (25.7-33.7); MCHC 33.5 g/dl (32.0-35.9); MEAN CELL VOLUME 89.4 fl (80-96); MEAN PLT VOLUME 8.6 fl (7.5-11.1); NEUT % 85.9 % (42.8-82.8); PLATELET COUNT 262 K/MM3 (134-434); RBC 4.28 M/mm3 (4.00-5.60); RDW 15.7 % (11.9-15.9); WHITE BLOOD COUNT 14.2 K/mm3 (4.0-10.0)
[2020-09-03 13:08] LABS: POTASSIUM 4.4 mmol/L (3.5-5.1)
[2020-09-03 13:13] LABS: BLOOD UREA NITROGEN 30.6 mg/dL (7-18); CALCIUM 8.1 mg/dL (8.5-10.1)
[2020-09-03 13:16] LABS: CREATININE 0.5 mg/dL (0.55-1.3)
[2020-09-03] MEDS: MELATONIN 5 MG TABLETS PO SCH (21:57)
[2020-09-03] MEDS: SENNOSIDES 8.6MG TABLET (FP) PO SCH (21:57)
[2020-09-04] MEDS: POLYETHYLENE GLYCOL 3350 119 GM BTL PO SCH (10:06)
[2020-09-04] MEDS: PANTOPRAZOLE 40 MG TABLET PO SCH (10:06)
[2020-09-04] MEDS: amLODIPine BESYLATE 5 MG TABLET (FP) PO SCH (10:07)
[2020-09-04] MEDS: ASCORBIC ACID 500 MG TABLET (FP) PO SCH ×2 (10:07→21:28)
[2020-09-04] MEDS: DEXAMETHASONE 4 MG TABLET (FP) PO SCH (10:07)
[2020-09-04] MEDS: ZINC SULFATE 220 MG CAPSULE (FP) PO SCH (10:07)
[2020-09-04] MEDS: ASPIRIN 81 MG CHEWABLE TABLETS PO SCH (10:07)
[2020-09-04] MEDS: TAMSULOSIN HCL 0.4 MG CAP PO SCH (10:07)
[2020-09-04] MEDS: AMINO ACIDS/PROTEIN HYDROLYS 30 ML LIQUID.PKT PO SCH (10:08)
[2020-09-04] MEDS: BUDESONIDE/FORMETEROL FUMARATE 160/4.5 mcg INHALER IH SCH ×2 (10:08→21:28)
[2020-09-04] MEDS: ENOXAPARIN NA (PORCINE) 40 MG/0.4 ML DISP.SYRIN SQ SCH (10:08)
[2020-09-04] MEDS: CHOLECALCIFEROL (VIT D3) 1,000 UNIT (25 MCG) TABLET PO SCH (10:09)
[2020-09-04 11:01] LABS: BASO % 0.3 % (0-2.0); EOS % 0.3 % (0-4.5); HEMATOCRIT 39.4 % (35.4-49); HEMOGLOBIN 13.3 GM/dL (11.7-16.9); MCH 30.1 pg (25.7-33.7); MCHC 33.8 g/dl (32.0-35.9); MEAN CELL VOLUME 89.3 fl (80-96); MEAN PLT VOLUME 8.1 fl (7.5-11.1); MONO % 7.1 % (3.8-10.2); NEUT % 84.3 % (42.8-82.8); PLATELET COUNT 258 K/MM3 (134-434); RBC 4.41 M/mm3 (4.00-5.60); RDW 15.8 % (11.9-15.9); WHITE BLOOD COUNT 12.6 K/mm3 (4.0-10.0)
[2020-09-04 11:15] LABS: POTASSIUM 3.8 mmol/L (3.5-5.1)
[2020-09-04 11:18] LABS: BLOOD UREA NITROGEN 32.8 mg/dL (7-18)
[2020-09-04 11:21] LABS: CREATININE 0.7 mg/dL (0.55-1.3)
[2020-09-04 13:32] LABS: ANISOCYTOSIS 0; HELMET CELLS 0; HOWELL-JOLLY BODIES 0; MACROCYTOSIS 0; OVALOCYTE 0; PLATELET ESTIMATE NORMAL; ROULEAU 0; SICKELED CELLS 0; TARGET CELLS 0; TEAR DROP CELLS 0; TOXIC GRANULATION 0
[2020-09-04] MEDS: SENNOSIDES 8.6MG TABLET (FP) PO SCH (21:28)
[2020-09-04] MEDS: MELATONIN 5 MG TABLETS PO SCH (21:28)
[2020-09-05] MEDS: DEXAMETHASONE 4 MG TABLET (FP) PO SCH (09:09)
[2020-09-05] MEDS: amLODIPine BESYLATE 5 MG TABLET (FP) PO SCH (09:09)
[2020-09-05] MEDS: AMINO ACIDS/PROTEIN HYDROLYS 30 ML LIQUID.PKT PO SCH (09:09)
[2020-09-05] MEDS: ASCORBIC ACID 500 MG TABLET (FP) PO SCH ×2 (09:09→21:20)
[2020-09-05] MEDS: ZINC SULFATE 220 MG CAPSULE (FP) PO SCH (09:09)
[2020-09-05] MEDS: ENOXAPARIN NA (PORCINE) 40 MG/0.4 ML DISP.SYRIN SQ SCH (09:09)
[2020-09-05] MEDS: TAMSULOSIN HCL 0.4 MG CAP PO SCH (09:09)
[2020-09-05] MEDS: ASPIRIN 81 MG CHEWABLE TABLETS PO SCH (09:09)
[2020-09-05] MEDS: PANTOPRAZOLE 40 MG TABLET PO SCH (09:09)
[2020-09-05] MEDS: POLYETHYLENE GLYCOL 3350 119 GM BTL PO SCH (09:12)
[2020-09-05] MEDS: CHOLECALCIFEROL (VIT D3) 1,000 UNIT (25 MCG) TABLET PO SCH (09:12)
[2020-09-05] MEDS: BUDESONIDE/FORMETEROL FUMARATE 160/4.5 mcg INHALER IH SCH ×2 (09:12→21:21)
[2020-09-05 09:35] LABS: BASO % 0.8 % (0-2.0); EOS % 0.1 % (0-4.5); HEMATOCRIT 42.2 % (35.4-49); HEMOGLOBIN 14.4 GM/dL (11.7-16.9); LYMPH % 9.9 % (8-40); MCH 30.3 pg (25.7-33.7); MEAN CELL VOLUME 89.2 fl (80-96); MEAN PLT VOLUME 8.1 fl (7.5-11.1); MONO % 5.3 % (3.8-10.2); NEUT % 83.9 % (42.8-82.8); PLATELET COUNT 289 K/MM3 (134-434); RBC 4.74 M/mm3 (4.00-5.60); RDW 15.7 % (11.9-15.9)
[2020-09-05 09:49] LABS: POTASSIUM 4.4 mmol/L (3.5-5.1)
[2020-09-05 10:07] LABS: ALBUMIN 2.4 g/dl (3.4-5.0); BLOOD UREA NITROGEN 25.2 mg/dL (7-18); CALCIUM 8.4 mg/dL (8.5-10.1)
[2020-09-05 10:08] LABS: MAGNESIUM 2.2 mg/dL (1.8-2.4)
[2020-09-05 10:11] LABS: CREATININE 0.6 mg/dL (0.55-1.3); PHOSPHOROUS 3.2 mg/dL (2.5-4.9)
[2020-09-05 10:13] LABS: BILIRUBIN,TOTAL 0.4 mg/dL (0.2-1); TOT PROT 5.6 g/dl (6.4-8.2)
[2020-09-05] MEDS: MELATONIN 5 MG TABLETS PO SCH (21:20)
[2020-09-05] MEDS: SENNOSIDES 8.6MG TABLET (FP) PO SCH (21:21)
[2020-09-06 09:29] LABS: BASO % 0.6 % (0-2.0); EOS % 0.1 % (0-4.5); HEMATOCRIT 40.8 % (35.4-49); HEMOGLOBIN 13.8 GM/dL (11.7-16.9); LYMPH % 9.6 % (8-40); MCH 30.2 pg (25.7-33.7); MCHC 33.9 g/dl (32.0-35.9); MEAN CELL VOLUME 89.2 fl (80-96); MEAN PLT VOLUME 7.9 fl (7.5-11.1); MONO % 5.8 % (3.8-10.2); NEUT % 83.9 % (42.8-82.8); PLATELET COUNT 251 K/MM3 (134-434); RBC 4.57 M/mm3 (4.00-5.60); RDW 15.5 % (11.9-15.9); WHITE BLOOD COUNT 11.7 K/mm3 (4.0-10.0)
[2020-09-06 09:50] LABS: POTASSIUM 4.1 mmol/L (3.5-5.1)
[2020-09-06] MEDS: ENOXAPARIN NA (PORCINE) 40 MG/0.4 ML DISP.SYRIN SQ SCH (10:13)
[2020-09-06] MEDS: PANTOPRAZOLE 40 MG TABLET PO SCH (10:13)
[2020-09-06] MEDS: AMINO ACIDS/PROTEIN HYDROLYS 30 ML LIQUID.PKT PO SCH (10:13)
[2020-09-06] MEDS: DEXAMETHASONE 4 MG TABLET (FP) PO SCH (10:13)
[2020-09-06] MEDS: CHOLECALCIFEROL (VIT D3) 1,000 UNIT (25 MCG) TABLET PO SCH (10:14)
[2020-09-06] MEDS: TAMSULOSIN HCL 0.4 MG CAP PO SCH (10:14)
[2020-09-06] MEDS: POLYETHYLENE GLYCOL 3350 119 GM BTL PO SCH (10:14)
[2020-09-06] MEDS: amLODIPine BESYLATE 5 MG TABLET (FP) PO SCH (10:14)
[2020-09-06] MEDS: ASPIRIN 81 MG CHEWABLE TABLETS PO SCH (10:14)
[2020-09-06] MEDS: BUDESONIDE/FORMETEROL FUMARATE 160/4.5 mcg INHALER IH SCH ×2 (10:14→22:01)
[2020-09-06] MEDS: ASCORBIC ACID 500 MG TABLET (FP) PO SCH ×2 (10:15→21:46)
[2020-09-06] MEDS: ZINC SULFATE 220 MG CAPSULE (FP) PO SCH (10:15)
[2020-09-06 10:26] LABS: ALBUMIN 2.3 g/dl (3.4-5.0)
[2020-09-06 10:27] LABS: BILIRUBIN,TOTAL 0.5 mg/dL (0.2-1); BLOOD UREA NITROGEN 28.1 mg/dL (7-18)
[2020-09-06 10:28] LABS: TOT PROT 5.3 g/dl (6.4-8.2)
[2020-09-06 10:29] LABS: CALCIUM 8.2 mg/dL (8.5-10.1); CREATININE 0.6 mg/dL (0.55-1.3)
[2020-09-06 10:30] LABS: MAGNESIUM 2.2 mg/dL (1.8-2.4); PHOSPHOROUS 3.5 mg/dL (2.5-4.9)
[2020-09-06] MEDS: ACETAMINOPHEN 325 MG TABLET (FP) PO PRN (21:45)
[2020-09-06] MEDS: MELATONIN 5 MG TABLETS PO SCH (21:45)
[2020-09-06] MEDS: SENNOSIDES 8.6MG TABLET (FP) PO SCH (21:48)
[2020-09-07 09:19] LABS: BASO % 0.5 % (0-2.0); HEMATOCRIT 39.6 % (35.4-49); HEMOGLOBIN 13.4 GM/dL (11.7-16.9); LYMPH % 13.1 % (8-40); MCH 30.1 pg (25.7-33.7); MCHC 33.8 g/dl (32.0-35.9); MEAN CELL VOLUME 88.9 fl (80-96); MEAN PLT VOLUME 8.1 fl (7.5-11.1); MONO % 4.9 % (3.8-10.2); NEUT % 81.5 % (42.8-82.8); PLATELET COUNT 247 K/MM3 (134-434); RBC 4.45 M/mm3 (4.00-5.60); RDW 15.9 % (11.9-15.9); WHITE BLOOD COUNT 13.1 K/mm3 (4.0-10.0)
[2020-09-07 09:32] LABS: CHLORIDE 106 mmol/L (98-107); POTASSIUM 4.7 mmol/L (3.5-5.1); SODIUM 140 mmol/L (136-145)
[2020-09-07 09:35] LABS: CALCIUM 8.3 mg/dL (8.5-10.1)
[2020-09-07 09:36] LABS: ALBUMIN 2.3 g/dl (3.4-5.0); ANION GAP 9 MMOL/L (8-16); BLOOD UREA NITROGEN 30.4 mg/dL (7-18); CO2 25 mmol/L (21-32); GLUCOSE,RANDOM 75 mg/dL (74-106); MAGNESIUM 2.3 mg/dL (1.8-2.4)
[2020-09-07 09:39] LABS: CREATININE 0.6 mg/dL (0.55-1.3); PHOSPHOROUS 3.4 mg/dL (2.5-4.9); SGOT/AST 9 U/L (15-37); SGPT/ALT 39 U/L (13-61)
[2020-09-07 09:40] LABS: BILIRUBIN,TOTAL 0.6 mg/dL (0.2-1); LDH 192 U/L (87-246)
[2020-09-07 09:41] LABS: TOT PROT 5.3 g/dl (6.4-8.2)
[2020-09-07 09:42] LABS: ALK PHOS 119 U/L (45-117)
[2020-09-07] MEDS: ZINC SULFATE 220 MG CAPSULE (FP) PO SCH (11:39)
[2020-09-07] MEDS: ENOXAPARIN NA (PORCINE) 40 MG/0.4 ML DISP.SYRIN SQ SCH (11:40)
[2020-09-07] MEDS: PANTOPRAZOLE 40 MG TABLET PO SCH (11:40)
[2020-09-07] MEDS: ASCORBIC ACID 500 MG TABLET (FP) PO SCH ×2 (11:40→21:31)
[2020-09-07] MEDS: AMINO ACIDS/PROTEIN HYDROLYS 30 ML LIQUID.PKT PO SCH (11:40)
[2020-09-07] MEDS: POLYETHYLENE GLYCOL 3350 119 GM BTL PO SCH (11:40)
[2020-09-07] MEDS: ASPIRIN 81 MG CHEWABLE TABLETS PO SCH (11:40)
[2020-09-07] MEDS: DEXAMETHASONE 4 MG TABLET (FP) PO SCH (11:40)
[2020-09-07] MEDS: amLODIPine BESYLATE 5 MG TABLET (FP) PO SCH (11:40)
[2020-09-07] MEDS: CHOLECALCIFEROL (VIT D3) 1,000 UNIT (25 MCG) TABLET PO SCH (11:40)
[2020-09-07] MEDS: BUDESONIDE/FORMETEROL FUMARATE 160/4.5 mcg INHALER IH SCH ×2 (11:40→21:32)
[2020-09-07] MEDS: TAMSULOSIN HCL 0.4 MG CAP PO SCH (11:40)
[2020-09-07] MEDS: MELATONIN 5 MG TABLETS PO SCH (21:31)
[2020-09-07] MEDS: SENNOSIDES 8.6MG TABLET (FP) PO SCH (21:32)
[2020-09-08 08:55] LABS: CHLORIDE 107 mmol/L (98-107); POTASSIUM 3.9 mmol/L (3.5-5.1); SODIUM 140 mmol/L (136-145)
[2020-09-08 08:56] LABS: HEMATOCRIT 39.4 % (35.4-49); HEMOGLOBIN 13.2 GM/dL (11.7-16.9); MCH 29.8 pg (25.7-33.7); MCHC 33.5 g/dl (32.0-35.9); MEAN CELL VOLUME 89.1 fl (80-96); MEAN PLT VOLUME 7.8 fl (7.5-11.1); PLATELET COUNT 215 K/MM3 (134-434); RBC 4.42 M/mm3 (4.00-5.60); WHITE BLOOD COUNT 11.2 K/mm3 (4.0-10.0)
[2020-09-08 08:57] LABS: ANION GAP 7 MMOL/L (8-16); BLOOD UREA NITROGEN 25.6 mg/dL (7-18); CALCIUM 7.9 mg/dL (8.5-10.1); CO2 26 mmol/L (21-32)
[2020-09-08 08:58] LABS: GLUCOSE,RANDOM 85 mg/dL (74-106)
[2020-09-08 09:01] LABS: CREATININE 0.6 mg/dL (0.55-1.3)
[2020-09-08 09:02] LABS: LDH 183 U/L (87-246)
[2020-09-08] MEDS: DEXAMETHASONE 4 MG TABLET (FP) PO SCH (09:17)
[2020-09-08] MEDS: ASCORBIC ACID 500 MG TABLET (FP) PO SCH ×2 (09:17→22:10)
[2020-09-08] MEDS: POLYETHYLENE GLYCOL 3350 119 GM BTL PO SCH (09:17)
[2020-09-08] MEDS: PANTOPRAZOLE 40 MG TABLET PO SCH (09:17)
[2020-09-08] MEDS: TAMSULOSIN HCL 0.4 MG CAP PO SCH (09:17)
[2020-09-08] MEDS: ASPIRIN 81 MG CHEWABLE TABLETS PO SCH (09:17)
[2020-09-08] MEDS: amLODIPine BESYLATE 5 MG TABLET (FP) PO SCH (09:17)
[2020-09-08] MEDS: ZINC SULFATE 220 MG CAPSULE (FP) PO SCH (09:17)
[2020-09-08] MEDS: ENOXAPARIN NA (PORCINE) 40 MG/0.4 ML DISP.SYRIN SQ SCH (09:17)
[2020-09-08] MEDS: AMINO ACIDS/PROTEIN HYDROLYS 30 ML LIQUID.PKT PO SCH (09:17)
[2020-09-08] MEDS: BUDESONIDE/FORMETEROL FUMARATE 160/4.5 mcg INHALER IH SCH ×2 (09:18→22:11)
[2020-09-08] MEDS: CHOLECALCIFEROL (VIT D3) 1,000 UNIT (25 MCG) TABLET PO SCH (09:18)
[2020-09-08] MEDS: ACETAMINOPHEN 325 MG TABLET (FP) PO PRN (18:00)
[2020-09-08] MEDS: SENNOSIDES 8.6MG TABLET (FP) PO SCH (22:10)
[2020-09-08] MEDS: MELATONIN 5 MG TABLETS PO SCH (22:10)
[2020-09-09] MEDS: ASCORBIC ACID 500 MG TABLET (FP) PO SCH ×2 (11:16→21:11)
[2020-09-09] MEDS: ENOXAPARIN NA (PORCINE) 40 MG/0.4 ML DISP.SYRIN SQ SCH (11:16)
[2020-09-09] MEDS: ZINC SULFATE 220 MG CAPSULE (FP) PO SCH (11:16)
[2020-09-09] MEDS: TAMSULOSIN HCL 0.4 MG CAP PO SCH (11:16)
[2020-09-09] MEDS: PANTOPRAZOLE 40 MG TABLET PO SCH (11:16)
[2020-09-09] MEDS: AMINO ACIDS/PROTEIN HYDROLYS 30 ML LIQUID.PKT PO SCH (11:16)
[2020-09-09] MEDS: CHOLECALCIFEROL (VIT D3) 1,000 UNIT (25 MCG) TABLET PO SCH (11:17)
[2020-09-09] MEDS: ASPIRIN 81 MG CHEWABLE TABLETS PO SCH (11:17)
[2020-09-09] MEDS: BUDESONIDE/FORMETEROL FUMARATE 160/4.5 mcg INHALER IH SCH ×2 (11:17→21:11)
[2020-09-09] MEDS: DEXAMETHASONE 4 MG TABLET (FP) PO SCH (11:17)
[2020-09-09] MEDS: amLODIPine BESYLATE 5 MG TABLET (FP) PO SCH (11:17)
[2020-09-09] MEDS: SODIUM CHLORIDE NASAL SPRAY 44 ML BOTTLE NS PRN (11:18)
[2020-09-09] MEDS: POLYETHYLENE GLYCOL 3350 119 GM BTL PO SCH (11:20)
[2020-09-09] MEDS: SENNOSIDES 8.6MG TABLET (FP) PO SCH (21:11)
[2020-09-09] MEDS: MELATONIN 5 MG TABLETS PO SCH (21:11)
[2020-09-10] MEDS: ENOXAPARIN NA (PORCINE) 40 MG/0.4 ML DISP.SYRIN SQ SCH (09:41)
[2020-09-10] MEDS: ASPIRIN 81 MG CHEWABLE TABLETS PO SCH (09:41)
[2020-09-10] MEDS: ZINC SULFATE 220 MG CAPSULE (FP) PO SCH (09:41)
[2020-09-10] MEDS: amLODIPine BESYLATE 5 MG TABLET (FP) PO SCH (09:41)
[2020-09-10] MEDS: AMINO ACIDS/PROTEIN HYDROLYS 30 ML LIQUID.PKT PO SCH (09:41)
[2020-09-10] MEDS: CHOLECALCIFEROL (VIT D3) 1,000 UNIT (25 MCG) TABLET PO SCH (09:41)
[2020-09-10] MEDS: DEXAMETHASONE 4 MG TABLET (FP) PO SCH (09:41)
[2020-09-10] MEDS: PANTOPRAZOLE 40 MG TABLET PO SCH (09:41)
[2020-09-10] MEDS: TAMSULOSIN HCL 0.4 MG CAP PO SCH (09:41)
[2020-09-10] MEDS: ASCORBIC ACID 500 MG TABLET (FP) PO SCH (09:41)
[2020-09-10] MEDS: POLYETHYLENE GLYCOL 3350 119 GM BTL PO SCH (09:42)
[2020-09-10] MEDS: BUDESONIDE/FORMETEROL FUMARATE 160/4.5 mcg INHALER IH SCH (09:42)
[2020-09-10 15:11] VITALS: BP 104/60; PULSE 71; TEMP 98
== END 2020-09-10 15:47 | disposition home or self-care (01) | DRG 137 ==
LOC: FER 19:39 → J5S 08-18 15:04
PROVIDERS: ADMIT Hospitalist
PROC: XW13325 Transfusion of Convalescent Plasma (Nonautologous) into Peripheral Vein, Percutaneous Approach, New Technology Group 5 (ICD-10-PCS; principal; 2020-08-19)
PROC: XW033E5 Introduction of Remdesivir Anti-infective into Peripheral Vein, Percutaneous Approach, New Technology Group 5 (ICD-10-PCS; 2020-08-19)
DX: U07.1 COVID-19 (principal); J96.01 Acute respiratory failure with hypoxia; J12.82 Pneumonia due to coronavirus disease 2019; F03.90 Unspecified dementia, unspecified severity, without behavioral disturbance, psychotic disturbance, mood disturbance, and anxiety; N40.0 Benign prostatic hyperplasia without lower urinary tract symptoms; I10 Essential (primary) hypertension
CPT/HCPCS: 36415; 36430; 71045-TC-FY; 80048; 80053; 81003; 81015; 82550; 82728; 83615; 83735; 83880; 84100; 84484; 85025; 85027; 85379; 85384; 85610; 85651; 85730; 86140; 86850; 86900; 86901; 87040; 87086; 93005; 94761; 97116-GP; 97161-GP; 99285-25; C9399; C9803; P9017; U0003

== ENCOUNTER 2020-09-19 08:51 | Inpatient (IN) | payer MEDICARE, OTHER ==
[2020-09-19 09:22] VITALS: BMI 23.0
[2020-09-19 10:34] LABS: VENOUS BASE EXCESS -0.5 mmol/L (-2-2); VENOUS O2 SATURATION 70.9 % (70-80); VENOUS PCO2 33.8 mmHg (38-52); VENOUS PH 7.448 (7.310-7.410)
[2020-09-19 10:35] LABS: EOS % 0.2 % (0-4.5); HEMATOCRIT 37.5 % (35.4-49); HEMOGLOBIN 13.1 GM/dL (11.7-16.9); LYMPH % 7.8 % (8-40); MCH 30.1 pg (25.7-33.7); MCHC 35.1 g/dl (32.0-35.9); MEAN CELL VOLUME 85.7 fl (80-96); MEAN PLT VOLUME 6.7 fl (7.5-11.1); MONO % 8.1 % (3.8-10.2); NEUT % 82.9 % (42.8-82.8); PLATELET COUNT 239 K/MM3 (134-434); RBC 4.37 M/mm3 (4.00-5.60); RDW 16.1 % (11.9-15.9); WHITE BLOOD COUNT 6.5 K/mm3 (4.0-10.0)
[2020-09-19 10:48] LABS: ACTIVATED PTT 28.6 SECONDS (25.2-36.5); INR 1.18 (0.83-1.09); PROTHROMBIN TIME (PATIENT) 14.4 SEC (9.7-13.0)
[2020-09-19 11:15] LABS: CHLORIDE 97 mmol/L (98-107); POTASSIUM 4.2 mmol/L (3.5-5.1); SODIUM 129 mmol/L (136-145)
[2020-09-19 11:17] LABS: ALBUMIN 2.1 g/dl (3.4-5.0); ANION GAP 10 MMOL/L (8-16); BLOOD UREA NITROGEN 15.7 mg/dL (7-18); CO2 21 mmol/L (21-32); GLUCOSE,RANDOM 95 mg/dL (74-106)
[2020-09-19 11:20] LABS: CREATININE 0.5 mg/dL (0.55-1.3); SGOT/AST 26 U/L (15-37); SGPT/ALT 49 U/L (13-61)
[2020-09-19 11:22] LABS: BILIRUBIN,TOTAL 0.4 mg/dL (0.2-1); TOT PROT 5.3 g/dl (6.4-8.2)
[2020-09-19 11:23] LABS: ALK PHOS 145 U/L (45-117)
[2020-09-19 11:58] LABS: URINE BARBITURATES NEGATIVE ng/ml (CUTOFF=200); URINE BENZODIAZEPINES NEGATIVE ng/ml (CUTOFF=200)
[2020-09-19 11:59] LABS: METHADONE, UR NEGATIVE ng/ml (CUTOFF=300); OPIATES, URI NEGATIVE ng/ml (CUTOFF=300); PHENCYCLIDINE,URINE NEGATIVE ng/ml (CUTOFF=25)
[2020-09-19 12:02] LABS: COCAINE, UR NEGATIVE ng/ml (CUTOFF=300); URINE AMPHETAMINES NEGATIVE ng/ml (CUTOFF=500)
[2020-09-19 12:12] LABS: URINE APPEARANCE CLEAR; URINE BILIRUBIN NEGATIVE (NEGATIVE); URINE COLOR YELLOW; URINE GLUCOSE (UA) NEGATIVE (NEGATIVE); URINE KETONE TRACE (NEGATIVE); URINE LEUK ESTERASE NEGATIVE (NEGATIVE); URINE NITRITE NEGATIVE (NEGATIVE); URINE PROTEIN NEGATIVE (NEGATIVE); URINE UROBILINOGEN 0.2 mg/dL (0.2-1.0)
[2020-09-19] MEDS ORDERED: SODIUM CHLORIDE 1,000 ML IV SCH (14:45)
[2020-09-19 22:05] LABS: POTASSIUM 3.9 mmol/L (3.5-5.1)
[2020-09-19] MEDS: ATORVASTATIN CA 40 MG TABLET (FP) PO SCH (22:26)
[2020-09-19 22:37] LABS: CALCIUM 7.7 mg/dL (8.5-10.1); CREATININE 0.4 mg/dL (0.55-1.3)
[2020-09-20 08:35] LABS: CHLORIDE 101 mmol/L (98-107); POTASSIUM 3.9 mmol/L (3.5-5.1); SODIUM 130 mmol/L (136-145)
[2020-09-20 08:42] LABS: CALCIUM 7.6 mg/dL (8.5-10.1)
[2020-09-20 08:43] LABS: ALBUMIN 1.9 g/dl (3.4-5.0); ANION GAP 8 MMOL/L (8-16); BLOOD UREA NITROGEN 15.4 mg/dL (7-18); CO2 21 mmol/L (21-32); GLUCOSE,RANDOM 81 mg/dL (74-106); MAGNESIUM 1.8 mg/dL (1.8-2.4)
[2020-09-20 08:45] LABS: PHOSPHOROUS 2.7 mg/dL (2.5-4.9); SGOT/AST 23 U/L (15-37); SGPT/ALT 38 U/L (13-61)
[2020-09-20 08:46] LABS: CREATININE 0.4 mg/dL (0.55-1.3)
[2020-09-20 08:47] LABS: BILIRUBIN,TOTAL 0.6 mg/dL (0.2-1); TOT PROT 4.9 g/dl (6.4-8.2)
[2020-09-20 08:48] LABS: ALK PHOS 140 U/L (45-117)
[2020-09-20 09:04] LABS: BASO % 0.8 % (0-2.0); EOS % 0.4 % (0-4.5); HEMATOCRIT 34.2 % (35.4-49); HEMOGLOBIN 12.2 GM/dL (11.7-16.9); LYMPH % 13.4 % (8-40); MCH 30.7 pg (25.7-33.7); MCHC 35.7 g/dl (32.0-35.9); MEAN CELL VOLUME 85.9 fl (80-96); MEAN PLT VOLUME 6.8 fl (7.5-11.1); MONO % 9.1 % (3.8-10.2); NEUT % 76.3 % (42.8-82.8); PLATELET COUNT 263 K/MM3 (134-434); RBC 3.98 M/mm3 (4.00-5.60); RDW 16.5 % (11.9-15.9); WHITE BLOOD COUNT 7.6 K/mm3 (4.0-10.0)
[2020-09-20] MEDS: TAMSULOSIN HCL 0.4 MG CAP PO SCH (10:13)
[2020-09-20] MEDS: ASPIRIN 81 MG CHEWABLE TABLETS PO SCH (10:13)
[2020-09-20 10:57] LABS: INR 1.29 (0.83-1.09); PROTHROMBIN TIME (PATIENT) 15.5 SEC (9.7-13.0)
[2020-09-20] MEDS: ATORVASTATIN CA 40 MG TABLET (FP) PO SCH (21:23)
[2020-09-21 09:00] LABS: POTASSIUM 3.8 mmol/L (3.5-5.1)
[2020-09-21 09:06] LABS: BASO % 0.6 % (0-2.0); CALCIUM 7.8 mg/dL (8.5-10.1); EOS % 0.3 % (0-4.5); HEMATOCRIT 33.4 % (35.4-49); HEMOGLOBIN 11.8 GM/dL (11.7-16.9); LYMPH % 9.4 % (8-40); MCH 30.6 pg (25.7-33.7); MCHC 35.3 g/dl (32.0-35.9); MEAN CELL VOLUME 86.7 fl (80-96); MEAN PLT VOLUME 6.7 fl (7.5-11.1); MONO % 8.9 % (3.8-10.2); NEUT % 80.8 % (42.8-82.8); PLATELET COUNT 297 K/MM3 (134-434); RBC 3.85 M/mm3 (4.00-5.60); RDW 16.3 % (11.9-15.9); WHITE BLOOD COUNT 8.7 K/mm3 (4.0-10.0)
[2020-09-21 09:07] LABS: ALBUMIN 1.7 g/dl (3.4-5.0)
[2020-09-21 09:10] LABS: CREATININE 0.3 mg/dL (0.55-1.3); PHOSPHOROUS 2.7 mg/dL (2.5-4.9)
[2020-09-21 09:12] LABS: BILIRUBIN,TOTAL 0.5 mg/dL (0.2-1); TOT PROT 4.4 g/dl (6.4-8.2)
[2020-09-21] MEDS: TAMSULOSIN HCL 0.4 MG CAP PO SCH (09:28)
[2020-09-21] MEDS: ASPIRIN 81 MG CHEWABLE TABLETS PO SCH (09:28)
[2020-09-21] MEDS: ENOXAPARIN NA (PORCINE) 40 MG/0.4 ML DISP.SYRIN SQ SCH (09:29)
[2020-09-21] MEDS: AMINO ACIDS 4.25%/D5W 1,000 ML IV SCH (16:32)
[2020-09-21] MEDS: amLODIPine BESYLATE 5 MG TABLET (FP) PO SCH (16:33)
[2020-09-21] MEDS: ATORVASTATIN CA 40 MG TABLET (FP) PO SCH (23:16)
[2020-09-22] MEDS: AMINO ACIDS 4.25%/D5W 1,000 ML IV SCH ×2 (03:00→13:30)
[2020-09-22 08:41] LABS: BASO % 0.5 % (0-2.0); EOS % 0.5 % (0-4.5); LYMPH % 10.5 % (8-40); MCH 29.9 pg (25.7-33.7); MCHC 34.5 g/dl (32.0-35.9); MEAN CELL VOLUME 86.9 fl (80-96); MEAN PLT VOLUME 6.8 fl (7.5-11.1); MONO % 9.3 % (3.8-10.2); NEUT % 79.2 % (42.8-82.8); PLATELET COUNT 355 K/MM3 (134-434); RBC 3.68 M/mm3 (4.00-5.60); RDW 16.2 % (11.9-15.9)
[2020-09-22 09:06] LABS: POTASSIUM 3.6 mmol/L (3.5-5.1)
[2020-09-22 09:10] LABS: ALBUMIN 1.8 g/dl (3.4-5.0); BLOOD UREA NITROGEN 35.9 mg/dL (7-18)
[2020-09-22 09:11] LABS: CALCIUM 7.9 mg/dL (8.5-10.1); MAGNESIUM 1.9 mg/dL (1.8-2.4)
[2020-09-22 09:13] LABS: CREATININE 0.4 mg/dL (0.55-1.3)
[2020-09-22 09:14] LABS: PHOSPHOROUS 1.7 mg/dL (2.5-4.9)
[2020-09-22 09:15] LABS: BILIRUBIN,TOTAL 0.5 mg/dL (0.2-1); TOT PROT 4.9 g/dl (6.4-8.2)
[2020-09-22] MEDS ORDERED: SODIUM PHOSPHATE - 30 MM in SODIUM CHLORIDE 500 ML IVPB ONE (09:56)
[2020-09-22] MEDS: TAMSULOSIN HCL 0.4 MG CAP PO SCH (10:05)
[2020-09-22] MEDS: ASPIRIN 81 MG CHEWABLE TABLETS PO SCH (10:05)
[2020-09-22] MEDS: ENOXAPARIN NA (PORCINE) 40 MG/0.4 ML DISP.SYRIN SQ SCH (10:06)
[2020-09-22] MEDS: amLODIPine BESYLATE 5 MG TABLET (FP) PO SCH (10:06)
[2020-09-22 11:52] LABS: ANISOCYTOSIS 1+; MACROCYTOSIS 0; OVALOCYTE 1+; PLATELET ESTIMATE NORMAL
[2020-09-22] MEDS: FAT EMULSIONS 20% 250 ML PREMIX INFUS.BAG IV SCH (22:55)
[2020-09-22] MEDS: ATORVASTATIN CA 40 MG TABLET (FP) PO SCH (22:55)
[2020-09-23] MEDS: AMINO ACIDS 4.25%/D5W 1,000 ML IV SCH ×2 (00:05→17:25)
[2020-09-23] MEDS: ENOXAPARIN NA (PORCINE) 40 MG/0.4 ML DISP.SYRIN SQ SCH (09:38)
[2020-09-23] MEDS: TAMSULOSIN HCL 0.4 MG CAP PO SCH (09:38)
[2020-09-23] MEDS: ASPIRIN 81 MG CHEWABLE TABLETS PO SCH (09:38)
[2020-09-23] MEDS: amLODIPine BESYLATE 5 MG TABLET (FP) PO SCH (09:38)
[2020-09-23 10:15] LABS: BASO % 0.6 % (0-2.0); EOS % 0.2 % (0-4.5); HEMATOCRIT 24.6 % (35.4-49); HEMOGLOBIN 8.4 GM/dL (11.7-16.9); LYMPH % 10.1 % (8-40); MCH 29.8 pg (25.7-33.7); MEAN CELL VOLUME 87.6 fl (80-96); MEAN PLT VOLUME 7.3 fl (7.5-11.1); MONO % 7.6 % (3.8-10.2); NEUT % 81.5 % (42.8-82.8); PLATELET COUNT 375 K/MM3 (134-434); RBC 2.81 M/mm3 (4.00-5.60); RDW 16.2 % (11.9-15.9); WHITE BLOOD COUNT 13.4 K/mm3 (4.0-10.0)
[2020-09-23 10:36] LABS: POTASSIUM 3.4 mmol/L (3.5-5.1)
[2020-09-23 10:49] LABS: ALBUMIN 1.7 g/dl (3.4-5.0); CALCIUM 7.6 mg/dL (8.5-10.1)
[2020-09-23 10:50] LABS: MAGNESIUM 1.7 mg/dL (1.8-2.4)
[2020-09-23 10:52] LABS: CREATININE 0.5 mg/dL (0.55-1.3)
[2020-09-23 10:53] LABS: PHOSPHOROUS 2.2 mg/dL (2.5-4.9)
[2020-09-23 10:54] LABS: BILIRUBIN,TOTAL 0.2 mg/dL (0.2-1); TOT PROT 4.5 g/dl (6.4-8.2)
[2020-09-23 11:53] LABS: ANISOCYTOSIS 1+; MACROCYTOSIS 1+; PLATELET ESTIMATE NORMAL
[2020-09-23] MEDS ORDERED: MAGNESIUM SULF 50% (8.12 MEQ/2 ML-1 GM VIAL) IVPB ONE (12:00)
[2020-09-23] MEDS ORDERED: SODIUM PHOSPHATE - 15 MM in SODIUM CHLORIDE 250 ML IVPB ONE (13:00)
[2020-09-23] MEDS: KCL 10 MEQ IVPB 10 MEQ/100 ML INFUS.BAG IVPB SCH ×3 (13:49→16:03)
[2020-09-23] MEDS: ATORVASTATIN CA 40 MG TABLET (FP) PO SCH (21:56)
[2020-09-24] MEDS: FAT EMULSIONS 20% 250 ML PREMIX INFUS.BAG IV SCH ×2 (00:18→23:00)
[2020-09-24] MEDS: TAMSULOSIN HCL 0.4 MG CAP PO SCH (08:50)
[2020-09-24] MEDS: amLODIPine BESYLATE 5 MG TABLET (FP) PO SCH (09:04)
[2020-09-24] MEDS: ASPIRIN 81 MG CHEWABLE TABLETS PO SCH (09:04)
[2020-09-24 10:00] LABS: BASO % 0.7 % (0-2.0); EOS % 0.9 % (0-4.5); HEMATOCRIT 21.5 % (35.4-49); HEMOGLOBIN 7.5 GM/dL (11.7-16.9); LYMPH % 10.8 % (8-40); MCH 30.5 pg (25.7-33.7); MCHC 34.7 g/dl (32.0-35.9); MEAN CELL VOLUME 87.8 fl (80-96); MONO % 6.9 % (3.8-10.2); NEUT % 80.7 % (42.8-82.8); PLATELET COUNT 408 K/MM3 (134-434); RBC 2.45 M/mm3 (4.00-5.60); RDW 16.6 % (11.9-15.9); WHITE BLOOD COUNT 18.3 K/mm3 (4.0-10.0)
[2020-09-24 10:26] LABS: POTASSIUM 3.3 mmol/L (3.5-5.1)
[2020-09-24 10:29] LABS: ALBUMIN 1.8 g/dl (3.4-5.0); BLOOD UREA NITROGEN 41.3 mg/dL (7-18); CALCIUM 7.7 mg/dL (8.5-10.1); MAGNESIUM 2.2 mg/dL (1.8-2.4)
[2020-09-24 10:33] LABS: CREATININE 0.4 mg/dL (0.55-1.3); PHOSPHOROUS 2.5 mg/dL (2.5-4.9)
[2020-09-24 10:34] LABS: BILIRUBIN,TOTAL 0.3 mg/dL (0.2-1); TOT PROT 4.6 g/dl (6.4-8.2)
[2020-09-24] MEDS: AMINO ACIDS 4.25%/D5W 1,000 ML IV SCH ×2 (10:35→18:11)
[2020-09-24] MEDS: ENOXAPARIN NA (PORCINE) 40 MG/0.4 ML DISP.SYRIN SQ SCH (10:39)
[2020-09-24 10:53] LABS: ANISOCYTOSIS 2+; PLATELET ESTIMATE NORMAL
[2020-09-24] MEDS: ATORVASTATIN CA 40 MG TABLET (FP) PO SCH (21:52)
[2020-09-25] MEDS: AMINO ACIDS 4.25%/D5W 1,000 ML IV SCH ×2 (01:14→16:00)
[2020-09-25] MEDS ORDERED: POTASSIUM CHLORIDE ORAL LIQUID 20 MEQ/15 ML PO ONE (04:19)
[2020-09-25] MEDS: KCL 10 MEQ IVPB 10 MEQ/100 ML INFUS.BAG IVPB SCH ×3 (07:00→11:03)
[2020-09-25] MEDS: TAMSULOSIN HCL 0.4 MG CAP PO SCH (09:39)
[2020-09-25] MEDS: ASPIRIN 81 MG CHEWABLE TABLETS PO SCH (09:39)
[2020-09-25] MEDS: amLODIPine BESYLATE 5 MG TABLET (FP) PO SCH (09:39)
[2020-09-25 09:55] LABS: BASO % 0.6 % (0-2.0); EOS % 0.3 % (0-4.5); HEMATOCRIT 18.8 % (35.4-49); LYMPH % 8.3 % (8-40); MCH 30.5 pg (25.7-33.7); MCHC 34.6 g/dl (32.0-35.9); MEAN CELL VOLUME 88.3 fl (80-96); MEAN PLT VOLUME 7.2 fl (7.5-11.1); MONO % 8.7 % (3.8-10.2); NEUT % 82.1 % (42.8-82.8); PLATELET COUNT 447 K/MM3 (134-434); RBC 2.13 M/mm3 (4.00-5.60); RDW 16.7 % (11.9-15.9); WHITE BLOOD COUNT 16.5 K/mm3 (4.0-10.0)
[2020-09-25 10:13] LABS: HEMOGLOBIN 6.5 GM/dL (11.7-16.9)
[2020-09-25 10:20] LABS: POTASSIUM 3.5 mmol/L (3.5-5.1)
[2020-09-25 10:25] LABS: IRON SERUM 15 ug/dL (50-175); TOTAL IRON BINDING CAPACITY 231 ug/dL (250-450)
[2020-09-25 10:27] LABS: BLOOD UREA NITROGEN 34.2 mg/dL (7-18); CREATININE 0.5 mg/dL (0.55-1.3); MAGNESIUM 1.9 mg/dL (1.8-2.4)
[2020-09-25 10:29] LABS: CALCIUM 7.6 mg/dL (8.5-10.1)
[2020-09-25 10:30] LABS: PHOSPHOROUS 2.6 mg/dL (2.5-4.9)
[2020-09-25 10:33] LABS: EPI CELLS 8 /uL (0-25.1); HYALINE CASTS 5 /uL (0-3.1); PH,URINE 5.5 (5.0-8.0); URINE APPEARANCE CLOUDY; URINE BACTERIA 1557 /uL (0-1359); URINE BILIRUBIN NEGATIVE (NEGATIVE); URINE COLOR YELLOW; URINE GLUCOSE (UA) NEGATIVE (NEGATIVE); URINE KETONE NEGATIVE (NEGATIVE); URINE LEUK ESTERASE 2+ (NEGATIVE); URINE NITRITE NEGATIVE (NEGATIVE); URINE PROTEIN 1+ (NEGATIVE); URINE RBC 118 /uL (0-23.9); URINE WBC 263 /uL (0-25.8)
[2020-09-25] MEDS ORDERED: CEFTRIAXONE 2 GM in DEXTROSE 5%-WATER 2 GM/100 ML BAG IVPB SCH (13:30)
[2020-09-25] MEDS ORDERED: VANCOMYCIN 1 GM in D5W (PRE-DOCKED) 1,000 MG/250 ML IVPB SCH (13:30)
[2020-09-25 13:45] LABS: ANISOCYTOSIS 1+; MACROCYTOSIS 0; PLATELET ESTIMATE NORMAL
[2020-09-25] MEDS ORDERED: VANCOMYCIN 1,000 MG in DEXTROSE 5%-WATER - 250 ML IVPB SCH (14:00)
[2020-09-25] MEDS ORDERED: FUROSEMIDE 40 MG/4 ML INJECTABLE VIAL IVPUSH ONE ×2 (15:18→22:00)
[2020-09-25] MEDS: PANTOPRAZOLE SODIUM 40 MG VIAL IVPUSH SCH ×2 (18:00→22:23)
[2020-09-25] MEDS: AMPICILLIN - 2 GM in SODIUM CHLORIDE 100 ML IVPB SCH ×2 (18:39→18:40)
[2020-09-25 19:20] LABS: CSF APPEARANCE CLEAR; CSF COLOR COLORLESS
[2020-09-25 19:21] LABS: CSF WBC 6
[2020-09-25 19:49] LABS: BF GLUCOSE (CSF ONLY) 48 mg/dL (40-70)
[2020-09-25] MEDS: FAT EMULSIONS 20% 250 ML PREMIX INFUS.BAG IV SCH (22:00)
[2020-09-25] MEDS: ATORVASTATIN CA 40 MG TABLET (FP) PO SCH (22:22)
[2020-09-26] MEDS: FAT EMULSIONS 20% 250 ML PREMIX INFUS.BAG IV SCH (01:11)
[2020-09-26] MEDS: AMINO ACIDS 4.25%/D5W 1,000 ML IV SCH ×2 (01:12→13:28)
[2020-09-26] MEDS ORDERED: VANCOMYCIN 1 GRAM (PRE-DOCKED) 1,000 MG/250 ML BAG IVPB SCH (07:00)
[2020-09-26 07:30] LABS: BASO % 0.6 % (0-2.0); EOS % 0.5 % (0-4.5); HEMATOCRIT 20.9 % (35.4-49); HEMOGLOBIN 7.2 GM/dL (11.7-16.9); LYMPH % 8.9 % (8-40); MCH 30.2 pg (25.7-33.7); MCHC 34.6 g/dl (32.0-35.9); MEAN CELL VOLUME 87.2 fl (80-96); MONO % 10.5 % (3.8-10.2); NEUT % 79.5 % (42.8-82.8); PLATELET COUNT 439 K/MM3 (134-434); RDW 16.1 % (11.9-15.9); WHITE BLOOD COUNT 15.9 K/mm3 (4.0-10.0)
[2020-09-26 07:50] LABS: POTASSIUM 3.3 mmol/L (3.5-5.1)
[2020-09-26 07:57] LABS: ALBUMIN 1.7 g/dl (3.4-5.0); BLOOD UREA NITROGEN 31.2 mg/dL (7-18); CREATININE 0.5 mg/dL (0.55-1.3); PHOSPHOROUS 2.8 mg/dL (2.5-4.9)
[2020-09-26 07:58] LABS: BILIRUBIN,TOTAL 0.5 mg/dL (0.2-1)
[2020-09-26 07:59] LABS: TOT PROT 4.4 g/dl (6.4-8.2)
[2020-09-26 08:00] LABS: CALCIUM 7.9 mg/dL (8.5-10.1); MAGNESIUM 1.8 mg/dL (1.8-2.4)
[2020-09-26] MEDS: TAMSULOSIN HCL 0.4 MG CAP PO SCH (09:06)
[2020-09-26 09:12] LABS: ANISOCYTOSIS 2+; MACROCYTOSIS 0; PLATELET ESTIMATE NORMAL
[2020-09-26] MEDS ORDERED: CEFTRIAXONE 2 GM in DEXTROSE 5%-WATER 2 GM/100 ML BAG IVPB SCH (10:00)
[2020-09-26] MEDS: amLODIPine BESYLATE 5 MG TABLET (FP) PO SCH (10:23)
[2020-09-26] MEDS: ASPIRIN 81 MG CHEWABLE TABLETS PO SCH (10:23)
[2020-09-26] MEDS: PANTOPRAZOLE SODIUM 40 MG VIAL IVPUSH SCH (10:23)
[2020-09-26] MEDS ORDERED: ACETAMINOPHEN 1000 MG/100 ML VIAL (NON FORMULARY) IVPB STA (10:49)
[2020-09-26] MEDS ORDERED: ACETAMINOPHEN 1000 MG/100 ML VIAL (NON FORMULARY) IVPB PRN (11:19)
[2020-09-26] MEDS ORDERED: VANCOMYCIN 1,000 MG in DEXTROSE 5%-WATER - 250 ML IVPB SCH ×2 (14:00→16:30)
[2020-09-26] MEDS: KCL 10 MEQ IVPB 10 MEQ/100 ML INFUS.BAG IVPB SCH ×3 (16:08→18:16)
[2020-09-26] MEDS ORDERED: SODIUM CHLORIDE 250 ML IV STA (17:55)
[2020-09-26] MEDS: CEFTRIAXONE 2 GM in DEXTROSE 5%-WATER 2 GM/100 ML BAG IVPB SCH (18:13)
[2020-09-26 21:15] LABS: HEMATOCRIT 19.8 % (35.4-49); MCH 29.3 pg (25.7-33.7); MCHC 31.8 g/dl (32.0-35.9); MEAN CELL VOLUME 92.3 fl (80-96); MEAN PLT VOLUME 7.3 fl (7.5-11.1); PLATELET COUNT 393 K/MM3 (134-434); RBC 2.15 M/mm3 (4.00-5.60); RDW 17.2 % (11.9-15.9); WHITE BLOOD COUNT 13.7 K/mm3 (4.0-10.0)
[2020-09-26 21:19] LABS: HEMOGLOBIN 6.3 GM/dL (11.7-16.9)
[2020-09-26] MEDS: ATORVASTATIN CA 40 MG TABLET (FP) PO SCH (22:16)
[2020-09-27] MEDS: FAT EMULSIONS 20% 250 ML PREMIX INFUS.BAG IV SCH ×2 (01:08→21:24)
[2020-09-27] MEDS: AMINO ACIDS 4.25%/D5W 1,000 ML IV SCH ×2 (06:31→12:32)
[2020-09-27 08:46] LABS: BASO % 0.7 % (0-2.0); EOS % 0.6 % (0-4.5); HEMATOCRIT 24.7 % (35.4-49); HEMOGLOBIN 8.6 GM/dL (11.7-16.9); LYMPH % 7.7 % (8-40); MCHC 34.9 g/dl (32.0-35.9); MEAN CELL VOLUME 88.9 fl (80-96); MEAN PLT VOLUME 7.1 fl (7.5-11.1); MONO % 9.1 % (3.8-10.2); NEUT % 81.9 % (42.8-82.8); PLATELET COUNT 398 K/MM3 (134-434); RBC 2.78 M/mm3 (4.00-5.60); RDW 16.9 % (11.9-15.9); WHITE BLOOD COUNT 13.9 K/mm3 (4.0-10.0)
[2020-09-27] MEDS: TAMSULOSIN HCL 0.4 MG CAP PO SCH (09:20)
[2020-09-27 09:21] LABS: POTASSIUM 3.7 mmol/L (3.5-5.1)
[2020-09-27 09:36] LABS: ALBUMIN 1.6 g/dl (3.4-5.0)
[2020-09-27 09:38] LABS: BLOOD UREA NITROGEN 24.2 mg/dL (7-18)
[2020-09-27 09:39] LABS: CALCIUM 7.8 mg/dL (8.5-10.1)
[2020-09-27 09:41] LABS: BILIRUBIN,TOTAL 0.4 mg/dL (0.2-1)
[2020-09-27 09:42] LABS: CREATININE 0.5 mg/dL (0.55-1.3)
[2020-09-27 09:43] LABS: MAGNESIUM 1.8 mg/dL (1.8-2.4); TOT PROT 4.3 g/dl (6.4-8.2)
[2020-09-27 09:44] LABS: BILIRUBIN,DIRECT 0.2 mg/dL (0.0-0.2); PHOSPHOROUS 3.3 mg/dL (2.5-4.9)
[2020-09-27] MEDS: PANTOPRAZOLE SODIUM 40 MG VIAL IVPUSH SCH (09:48)
[2020-09-27] MEDS: ASPIRIN 81 MG CHEWABLE TABLETS PO SCH (09:48)
[2020-09-27] MEDS: CEFTRIAXONE 2 GM in DEXTROSE 5%-WATER 2 GM/100 ML BAG IVPB SCH (09:48)
[2020-09-27] MEDS: amLODIPine BESYLATE 5 MG TABLET (FP) PO SCH (09:50)
[2020-09-27] MEDS: POLYETHYLENE GLYCOL 3350 119 GM BTL PO SCH (09:50)
[2020-09-27 11:21] LABS: ANISOCYTOSIS 1+; MACROCYTOSIS 0
[2020-09-27 13:10] LABS: PLATELET ESTIMATE NORMAL
[2020-09-27 15:11] LABS: RETICULOCYTES 5.51 % (0.5-1.5)
[2020-09-27] MEDS ORDERED: ACETAMINOPHEN 1000 MG/100 ML VIAL (NON FORMULARY) IVPB PRN (15:27)
[2020-09-27] MEDS ORDERED: SODIUM CHLORIDE 250 ML IV STA (18:24)
[2020-09-27] MEDS: ATORVASTATIN CA 40 MG TABLET (FP) PO SCH (21:24)
[2020-09-28] MEDS: AMINO ACIDS 4.25%/D5W 1,000 ML IV SCH (02:16)
[2020-09-28 08:03] LABS: BASO % 0.8 % (0-2.0); EOS % 0.5 % (0-4.5); HEMATOCRIT 25.3 % (35.4-49); HEMOGLOBIN 8.6 GM/dL (11.7-16.9); LYMPH % 8.3 % (8-40); MCH 30.3 pg (25.7-33.7); MCHC 34.1 g/dl (32.0-35.9); MEAN PLT VOLUME 7.1 fl (7.5-11.1); MONO % 7.8 % (3.8-10.2); NEUT % 82.6 % (42.8-82.8); PLATELET COUNT 441 K/MM3 (134-434); RBC 2.84 M/mm3 (4.00-5.60); RDW 16.6 % (11.9-15.9); WHITE BLOOD COUNT 12.8 K/mm3 (4.0-10.0)
[2020-09-28 08:16] LABS: POTASSIUM 3.3 mmol/L (3.5-5.1)
[2020-09-28 08:54] LABS: ALBUMIN 1.6 g/dl (3.4-5.0); BLOOD UREA NITROGEN 30.3 mg/dL (7-18); CALCIUM 8.1 mg/dL (8.5-10.1)
[2020-09-28 08:57] LABS: CREATININE 0.5 mg/dL (0.55-1.3); PHOSPHOROUS 3.8 mg/dL (2.5-4.9)
[2020-09-28 08:59] LABS: BILIRUBIN,TOTAL 0.4 mg/dL (0.2-1); TOT PROT 4.6 g/dl (6.4-8.2)
[2020-09-28] MEDS: ASPIRIN 81 MG CHEWABLE TABLETS PO SCH (10:29)
[2020-09-28] MEDS: CEFTRIAXONE 2 GM in DEXTROSE 5%-WATER 2 GM/100 ML BAG IVPB SCH (10:30)
[2020-09-28] MEDS: PANTOPRAZOLE SODIUM 40 MG VIAL IVPUSH SCH (10:31)
[2020-09-28] MEDS: POLYETHYLENE GLYCOL 3350 119 GM BTL PO SCH (10:45)
[2020-09-28 11:04] LABS: ANISOCYTOSIS 1+; PLATELET ESTIMATE INCREASED
[2020-09-28] MEDS: KCL 10 MEQ IVPB 10 MEQ/100 ML INFUS.BAG IVPB SCH ×3 (11:26→14:57)
[2020-09-28] MEDS ORDERED: LACTULOSE 20 GM/30 ML UDC (FOR ORAL USE ONLY) PO ONE (14:00)
[2020-09-28] MEDS ORDERED: AMINO ACIDS 4.25%/D5W 1,000 ML IV SCH (17:15)
[2020-09-28] MEDS: ATORVASTATIN CA 40 MG TABLET (FP) PO SCH (21:01)
[2020-09-28] MEDS: FAT EMULSIONS 20% 250 ML PREMIX INFUS.BAG IV SCH (21:02)
[2020-09-29 08:12] LABS: BASO % 0.6 % (0-2.0); EOS % 0.7 % (0-4.5); HEMATOCRIT 26.2 % (35.4-49); HEMOGLOBIN 9.1 GM/dL (11.7-16.9); LYMPH % 9.5 % (8-40); MCH 30.8 pg (25.7-33.7); MCHC 34.6 g/dl (32.0-35.9); MEAN PLT VOLUME 7.4 fl (7.5-11.1); MONO % 7.8 % (3.8-10.2); NEUT % 81.4 % (42.8-82.8); PLATELET COUNT 477 K/MM3 (134-434); RBC 2.94 M/mm3 (4.00-5.60); RDW 16.9 % (11.9-15.9); WHITE BLOOD COUNT 13.3 K/mm3 (4.0-10.0)
[2020-09-29 08:34] LABS: POTASSIUM 3.4 mmol/L (3.5-5.1)
[2020-09-29 08:35] LABS: CALCIUM 8.4 mg/dL (8.5-10.1)
[2020-09-29 08:36] LABS: ALBUMIN 1.7 g/dl (3.4-5.0); BLOOD UREA NITROGEN 21.9 mg/dL (7-18)
[2020-09-29 08:39] LABS: CREATININE 0.5 mg/dL (0.55-1.3); PHOSPHOROUS 2.8 mg/dL (2.5-4.9)
[2020-09-29 08:40] LABS: BILIRUBIN,TOTAL 0.3 mg/dL (0.2-1)
[2020-09-29 08:41] LABS: TOT PROT 4.8 g/dl (6.4-8.2)
[2020-09-29] MEDS: KCL 10 MEQ IVPB 10 MEQ/100 ML INFUS.BAG IVPB SCH ×3 (09:28→10:27)
[2020-09-29 09:48] LABS: ANISOCYTOSIS 0; MACROCYTOSIS 0; PLATELET ESTIMATE NORMAL
[2020-09-29] MEDS: POLYETHYLENE GLYCOL 3350 119 GM BTL PO SCH (09:57)
[2020-09-29] MEDS: CEFTRIAXONE 2 GM in DEXTROSE 5%-WATER 2 GM/100 ML BAG IVPB SCH (09:57)
[2020-09-29] MEDS: PANTOPRAZOLE SODIUM 40 MG VIAL IVPUSH SCH (09:57)
[2020-09-29] MEDS: ASPIRIN 81 MG CHEWABLE TABLETS PO SCH (09:57)
[2020-09-29] MEDS: AMINO ACIDS 4.25%/D5W 1,000 ML IV SCH (17:39)
[2020-09-29] MEDS ORDERED: FAT EMULSIONS 20% 250 ML PREMIX INFUS.BAG IV SCH (22:00)
[2020-09-29] MEDS: ATORVASTATIN CA 40 MG TABLET (FP) PO SCH (23:15)
[2020-09-30] MEDS: FAT EMULSIONS 250 ML IV SCH (00:15)
[2020-09-30 08:51] LABS: BASO % 1.2 % (0-2.0); EOS % 0.5 % (0-4.5); HEMATOCRIT 25.6 % (35.4-49); HEMOGLOBIN 8.8 GM/dL (11.7-16.9); LYMPH % 9.7 % (8-40); MCH 30.7 pg (25.7-33.7); MCHC 34.2 g/dl (32.0-35.9); MEAN CELL VOLUME 89.8 fl (80-96); MEAN PLT VOLUME 7.6 fl (7.5-11.1); MONO % 10.5 % (3.8-10.2); NEUT % 78.1 % (42.8-82.8); PLATELET COUNT 461 K/MM3 (134-434); RBC 2.85 M/mm3 (4.00-5.60); WHITE BLOOD COUNT 10.3 K/mm3 (4.0-10.0)
[2020-09-30 09:17] LABS: POTASSIUM 3.7 mmol/L (3.5-5.1)
[2020-09-30 09:26] LABS: BLOOD UREA NITROGEN 24.8 mg/dL (7-18); CALCIUM 8.3 mg/dL (8.5-10.1)
[2020-09-30 09:27] LABS: ALBUMIN 1.7 g/dl (3.4-5.0)
[2020-09-30 09:30] LABS: CREATININE 0.6 mg/dL (0.55-1.3); PHOSPHOROUS 3.4 mg/dL (2.5-4.9)
[2020-09-30 09:31] LABS: BILIRUBIN,TOTAL 0.4 mg/dL (0.2-1)
[2020-09-30 09:32] LABS: TOT PROT 4.7 g/dl (6.4-8.2)
[2020-09-30] MEDS ORDERED: PT OWN MED DRAWER 7, Y5N ONE (09:52)
[2020-09-30] MEDS ORDERED: DEXTROSE 5%-WATER 100 ML IVPB ONE (09:53)
[2020-09-30] MEDS: CEFTRIAXONE 2 GM in DEXTROSE 5%-WATER 2 GM/100 ML BAG IVPB SCH (09:57)
[2020-09-30] MEDS: PANTOPRAZOLE SODIUM 40 MG VIAL IVPUSH SCH (09:59)
[2020-09-30 10:27] LABS: ANISOCYTOSIS 2+; MACROCYTOSIS 0; PLATELET ESTIMATE NORMAL
[2020-09-30] MEDS: ASPIRIN 81 MG CHEWABLE TABLETS PO SCH (11:40)
[2020-09-30] MEDS: POLYETHYLENE GLYCOL 3350 119 GM BTL PO SCH (11:40)
[2020-09-30] MEDS: AMINO ACIDS 4.25%/D5W 1,000 ML IV SCH (18:45)
[2020-09-30] MEDS: ATORVASTATIN CA 40 MG TABLET (FP) PO SCH (23:06)
[2020-10-01] MEDS: FAT EMULSIONS 250 ML IV SCH (05:34)
[2020-10-01 09:03] LABS: BASO % 1.3 % (0-2.0); EOS % 0.7 % (0-4.5); HEMATOCRIT 25.5 % (35.4-49); HEMOGLOBIN 8.9 GM/dL (11.7-16.9); LYMPH % 9.9 % (8-40); MCH 31.4 pg (25.7-33.7); MCHC 34.8 g/dl (32.0-35.9); MEAN CELL VOLUME 90.1 fl (80-96); MEAN PLT VOLUME 7.7 fl (7.5-11.1); MONO % 10.4 % (3.8-10.2); NEUT % 77.7 % (42.8-82.8); PLATELET COUNT 449 K/MM3 (134-434); RBC 2.83 M/mm3 (4.00-5.60); RDW 16.8 % (11.9-15.9); WHITE BLOOD COUNT 10.1 K/mm3 (4.0-10.0)
[2020-10-01 09:31] LABS: POTASSIUM 3.6 mmol/L (3.5-5.1)
[2020-10-01 09:36] LABS: CALCIUM 8.3 mg/dL (8.5-10.1)
[2020-10-01 09:37] LABS: ALBUMIN 1.7 g/dl (3.4-5.0); BLOOD UREA NITROGEN 30.1 mg/dL (7-18)
[2020-10-01 09:40] LABS: CREATININE 0.6 mg/dL (0.55-1.3)
[2020-10-01 09:41] LABS: BILIRUBIN,TOTAL 0.3 mg/dL (0.2-1); TOT PROT 4.8 g/dl (6.4-8.2)
[2020-10-01] MEDS ORDERED: DEXTROSE 5%-WATER 100 ML IVPB ONE (10:47)
[2020-10-01] MEDS: ASPIRIN 81 MG CHEWABLE TABLETS PO SCH (10:48)
[2020-10-01] MEDS: POLYETHYLENE GLYCOL 3350 119 GM BTL PO SCH (10:48)
[2020-10-01] MEDS: CEFTRIAXONE 2 GM in DEXTROSE 5%-WATER 2 GM/100 ML BAG IVPB SCH (10:48)
[2020-10-01] MEDS: PANTOPRAZOLE SODIUM 40 MG VIAL IVPUSH SCH (10:48)
[2020-10-01 11:20] LABS: ANISOCYTOSIS 0; MACROCYTOSIS 0; OVALOCYTE 0; SICKELED CELLS 0; TARGET CELLS 0; TEAR DROP CELLS 0
[2020-10-01 11:21] LABS: HELMET CELLS 0; HOWELL-JOLLY BODIES 0; PLATELET ESTIMATE NORMAL; ROULEAU 0; TOXIC GRANULATION 0
[2020-10-01] MEDS ORDERED: PHYTONADIONE 10 MG/1 ML AMP IM ONE (16:45)
[2020-10-01] MEDS ORDERED: PHYTONADIONE 10 MG/1 ML AMP IVPB ONE (16:45)
[2020-10-01] MEDS: AMINO ACIDS 4.25%/D5W 1,000 ML IV SCH (18:55)
[2020-10-01] MEDS: ATORVASTATIN CA 40 MG TABLET (FP) PO SCH (21:33)
[2020-10-01] MEDS ORDERED: PT OWN MED DRAWER 7, Y5N ONE (21:36)
[2020-10-02 09:21] LABS: BASO % 1.4 % (0-2.0); EOS % 0.5 % (0-4.5); HEMATOCRIT 26.3 % (35.4-49); HEMOGLOBIN 9.2 GM/dL (11.7-16.9); LYMPH % 10.9 % (8-40); MCHC 35.1 g/dl (32.0-35.9); MEAN CELL VOLUME 88.3 fl (80-96); MEAN PLT VOLUME 7.5 fl (7.5-11.1); MONO % 10.1 % (3.8-10.2); NEUT % 77.1 % (42.8-82.8); PLATELET COUNT 492 K/MM3 (134-434); RBC 2.98 M/mm3 (4.00-5.60); RDW 17.1 % (11.9-15.9); WHITE BLOOD COUNT 10.5 K/mm3 (4.0-10.0)
[2020-10-02 09:42] LABS: POTASSIUM 3.6 mmol/L (3.5-5.1)
[2020-10-02 09:46] LABS: ALBUMIN 1.8 g/dl (3.4-5.0); BLOOD UREA NITROGEN 31.3 mg/dL (7-18); CALCIUM 8.3 mg/dL (8.5-10.1)
[2020-10-02] MEDS ORDERED: CEFAZOLIN 1 GM/D5W 2 GM/100 ML BAG ONE (09:48)
[2020-10-02 09:50] LABS: BILIRUBIN,TOTAL 0.6 mg/dL (0.2-1); CREATININE 0.7 mg/dL (0.55-1.3)
[2020-10-02] MEDS ORDERED: POVIDONE-IODINE OINTMENT 10% - 28.4 GM TUBE TP ONE (10:12)
[2020-10-02 11:51] LABS: ANISOCYTOSIS 2+; MACROCYTOSIS 1+; PLATELET ESTIMATE INCREASED
[2020-10-02] MEDS: FAT EMULSIONS 250 ML IV SCH (12:09)
[2020-10-02] MEDS: POLYETHYLENE GLYCOL 3350 119 GM BTL PO SCH (12:11)
[2020-10-02] MEDS: ASPIRIN 81 MG CHEWABLE TABLETS PO SCH (12:11)
[2020-10-02] MEDS: PANTOPRAZOLE SODIUM 40 MG VIAL IVPUSH SCH (12:12)
[2020-10-02] MEDS ORDERED: ASPIRIN 81 MG CHEWABLE TABLETS PO SCH (12:35)
[2020-10-02] MEDS ORDERED: POLYETHYLENE GLYCOL 3350 119 GM BTL PO SCH (12:36)
[2020-10-02] MEDS ORDERED: AMINO ACIDS 4.25%/D5W 1,000 ML IV SCH (17:15)
[2020-10-02] MEDS ORDERED: ATORVASTATIN CA 40 MG TABLET (FP) PO SCH (22:00)
[2020-10-02] MEDS ORDERED: FAT EMULSIONS 250 ML IV SCH (22:00)
[2020-10-03 07:40] LABS: BASO % 1.3 % (0-2.0); EOS % 0.8 % (0-4.5); HEMATOCRIT 27.3 % (35.4-49); HEMOGLOBIN 9.2 GM/dL (11.7-16.9); LYMPH % 12.6 % (8-40); MCH 30.2 pg (25.7-33.7); MCHC 33.8 g/dl (32.0-35.9); MEAN CELL VOLUME 89.3 fl (80-96); MEAN PLT VOLUME 7.4 fl (7.5-11.1); MONO % 11.5 % (3.8-10.2); NEUT % 73.8 % (42.8-82.8); PLATELET COUNT 512 K/MM3 (134-434); RBC 3.06 M/mm3 (4.00-5.60); RDW 16.7 % (11.9-15.9); WHITE BLOOD COUNT 10.4 K/mm3 (4.0-10.0)
[2020-10-03 08:15] LABS: POTASSIUM 3.6 mmol/L (3.5-5.1)
[2020-10-03 08:20] LABS: ALBUMIN 1.8 g/dl (3.4-5.0); CALCIUM 8.7 mg/dL (8.5-10.1); MAGNESIUM 2.2 mg/dL (1.8-2.4)
[2020-10-03 08:23] LABS: CREATININE 0.6 mg/dL (0.55-1.3); PHOSPHOROUS 3.5 mg/dL (2.5-4.9)
[2020-10-03 08:25] LABS: BILIRUBIN,TOTAL 0.4 mg/dL (0.2-1); TOT PROT 5.3 g/dl (6.4-8.2)
[2020-10-03 09:52] LABS: ANISOCYTOSIS 1+; MACROCYTOSIS 1+; OVALOCYTE 1+; PLATELET ESTIMATE INCREASED; TARGET CELLS 1+
[2020-10-03] MEDS ORDERED: PANTOPRAZOLE SODIUM 40 MG VIAL IVPUSH SCH (10:00)
[2020-10-03] MEDS ORDERED: POLYETHYLENE GLYCOL 3350 119 GM BTL PO SCH (10:00)
[2020-10-03] MEDS ORDERED: ASPIRIN 81 MG CHEWABLE TABLETS PO SCH (10:00)
[2020-10-03] MEDS: PANTOPRAZOLE SODIUM 40 MG VIAL IVPUSH SCH (10:20)
[2020-10-03] MEDS ORDERED: TAMSULOSIN HCL 0.4 MG CAP PO ONE (11:39)
[2020-10-03] MEDS: ATORVASTATIN CA 40 MG TABLET (FP) PEG SCH (22:30)
[2020-10-04] MEDS ORDERED: TAMSULOSIN HCL 0.4 MG CAP PO SCH (08:30)
[2020-10-04 08:59] LABS: HEMATOCRIT 27.6 % (35.4-49); HEMOGLOBIN 9.5 GM/dL (11.7-16.9); MCH 30.4 pg (25.7-33.7); MCHC 34.4 g/dl (32.0-35.9); MEAN CELL VOLUME 88.5 fl (80-96); MEAN PLT VOLUME 7.9 fl (7.5-11.1); PLATELET COUNT 567 K/MM3 (134-434); RBC 3.12 M/mm3 (4.00-5.60); RDW 16.7 % (11.9-15.9); WHITE BLOOD COUNT 10.7 K/mm3 (4.0-10.0)
[2020-10-04 09:06] LABS: POTASSIUM 3.8 mmol/L (3.5-5.1)
[2020-10-04 09:09] LABS: BLOOD UREA NITROGEN 33.6 mg/dL (7-18); CALCIUM 8.8 mg/dL (8.5-10.1)
[2020-10-04 09:13] LABS: CREATININE 0.6 mg/dL (0.55-1.3)
[2020-10-04 09:14] LABS: BILIRUBIN,TOTAL 0.4 mg/dL (0.2-1); TOT PROT 5.6 g/dl (6.4-8.2)
[2020-10-04] MEDS ORDERED: LIDOCAINE HCL 1%, 10 MG/ML (20ML VIAL) ONE (09:40)
[2020-10-04] MEDS ORDERED: ENOXAPARIN NA (PORCINE) 40 MG/0.4 ML DISP.SYRIN SQ SCH (10:00)
[2020-10-04] MEDS ORDERED: PT OWN MED DRAWER 7, Y5N ONE (10:34)
[2020-10-04] MEDS: PANTOPRAZOLE SODIUM 40 MG VIAL IVPUSH SCH (11:06)
[2020-10-04] MEDS: DOXAZOSIN MESYLATE 2 MG TABLET PEG SCH (13:40)
[2020-10-04] MEDS: ASPIRIN 81 MG CHEWABLE TABLETS PEG SCH (13:40)
[2020-10-04] MEDS: POLYETHYLENE GLYCOL 3350 119 GM BTL PEG SCH (13:41)
[2020-10-04] MEDS: ATORVASTATIN CA 40 MG TABLET (FP) PEG SCH (21:52)
[2020-10-05] MEDS: ENOXAPARIN NA (PORCINE) 40 MG/0.4 ML DISP.SYRIN SQ SCH (11:25)
[2020-10-05] MEDS: DOXAZOSIN MESYLATE 2 MG TABLET PEG SCH (11:25)
[2020-10-05] MEDS: ASPIRIN 81 MG CHEWABLE TABLETS PEG SCH (11:25)
[2020-10-05] MEDS: PANTOPRAZOLE SODIUM 40 MG VIAL IVPUSH SCH (11:26)
[2020-10-05] MEDS: POLYETHYLENE GLYCOL 3350 119 GM BTL PEG SCH (11:26)
[2020-10-05] MEDS: ATORVASTATIN CA 40 MG TABLET (FP) PEG SCH (22:13)
[2020-10-05] MEDS: FAMOTIDINE 40 MG/5 ML ORAL SUSPENSION PEG SCH (22:13)
[2020-10-06 08:51] LABS: BASO % 0.8 % (0-2.0); EOS % 0.3 % (0-4.5); HEMATOCRIT 30.4 % (35.4-49); HEMOGLOBIN 9.9 GM/dL (11.7-16.9); LYMPH % 10.9 % (8-40); MCHC 32.5 g/dl (32.0-35.9); MEAN CELL VOLUME 89.2 fl (80-96); MEAN PLT VOLUME 7.9 fl (7.5-11.1); MONO % 8.3 % (3.8-10.2); NEUT % 79.7 % (42.8-82.8); PLATELET COUNT 560 K/MM3 (134-434); RBC 3.41 M/mm3 (4.00-5.60); RDW 17.1 % (11.9-15.9); WHITE BLOOD COUNT 16.3 K/mm3 (4.0-10.0)
[2020-10-06 09:08] LABS: BLOOD UREA NITROGEN 45.1 mg/dL (7-18)
[2020-10-06 09:09] LABS: MAGNESIUM 2.8 mg/dL (1.8-2.4)
[2020-10-06 09:11] LABS: CALCIUM 8.7 mg/dL (8.5-10.1); PHOSPHOROUS 4.1 mg/dL (2.5-4.9)
[2020-10-06 09:12] LABS: BILIRUBIN,TOTAL 0.3 mg/dL (0.2-1); CREATININE 0.8 mg/dL (0.55-1.3)
[2020-10-06 09:13] LABS: TOT PROT 5.7 g/dl (6.4-8.2)
[2020-10-06] MEDS ORDERED: PT OWN MED DRAWER 7, Y5N ONE ×2 (09:18→21:49)
[2020-10-06] MEDS: POLYETHYLENE GLYCOL 3350 119 GM BTL PEG SCH (09:24)
[2020-10-06] MEDS: FAMOTIDINE 40 MG/5 ML ORAL SUSPENSION PEG SCH ×2 (09:24→22:07)
[2020-10-06] MEDS: ASPIRIN 81 MG CHEWABLE TABLETS PEG SCH (09:24)
[2020-10-06] MEDS: ENOXAPARIN NA (PORCINE) 40 MG/0.4 ML DISP.SYRIN SQ SCH (09:24)
[2020-10-06] MEDS: DOXAZOSIN MESYLATE 2 MG TABLET PEG SCH (09:24)
[2020-10-06] MEDS ORDERED: PANTOPRAZOLE 40 MG TABLET PO SCH (10:00)
[2020-10-06 12:02] LABS: ANISOCYTOSIS 1+; MACROCYTOSIS 0; PLATELET ESTIMATE INCREASED; TARGET CELLS 1+; TEAR DROP CELLS 1+
[2020-10-06 17:00] LABS: POTASSIUM 3.6 mmol/L (3.5-5.1)
[2020-10-06 17:03] LABS: CALCIUM 8.9 mg/dL (8.5-10.1)
[2020-10-06 17:04] LABS: BLOOD UREA NITROGEN 44.4 mg/dL (7-18)
[2020-10-06 17:05] LABS: CREATININE 0.8 mg/dL (0.55-1.3)
[2020-10-06] MEDS: ATORVASTATIN CA 40 MG TABLET (FP) PEG SCH (22:07)
[2020-10-07] MEDS ORDERED: PT OWN MED DRAWER 7, Y5N ONE (10:04)
[2020-10-07] MEDS: ENOXAPARIN NA (PORCINE) 40 MG/0.4 ML DISP.SYRIN SQ SCH (10:15)
[2020-10-07] MEDS: POLYETHYLENE GLYCOL 3350 119 GM BTL PEG SCH (10:15)
[2020-10-07] MEDS: FAMOTIDINE 40 MG/5 ML ORAL SUSPENSION PEG SCH ×2 (10:15→22:14)
[2020-10-07] MEDS: DOXAZOSIN MESYLATE 2 MG TABLET PEG SCH (10:16)
[2020-10-07] MEDS: ASPIRIN 81 MG CHEWABLE TABLETS PEG SCH (10:16)
[2020-10-07 13:53] LABS: EOS % 0.9 % (0-4.5); HEMATOCRIT 32.5 % (35.4-49); HEMOGLOBIN 10.5 GM/dL (11.7-16.9); LYMPH % 12.6 % (8-40); MCH 29.4 pg (25.7-33.7); MCHC 32.2 g/dl (32.0-35.9); MEAN CELL VOLUME 91.3 fl (80-96); NEUT % 78.5 % (42.8-82.8); PLATELET COUNT 528 K/MM3 (134-434); RBC 3.55 M/mm3 (4.00-5.60); RDW 17.6 % (11.9-15.9); WHITE BLOOD COUNT 15.2 K/mm3 (4.0-10.0)
[2020-10-07 14:06] LABS: POTASSIUM 4.4 mmol/L (3.5-5.1)
[2020-10-07 14:08] LABS: ALBUMIN 2.1 g/dl (3.4-5.0); BLOOD UREA NITROGEN 42.2 mg/dL (7-18); CALCIUM 8.6 mg/dL (8.5-10.1)
[2020-10-07 14:12] LABS: CREATININE 0.7 mg/dL (0.55-1.3)
[2020-10-07 14:13] LABS: BILIRUBIN,TOTAL 0.2 mg/dL (0.2-1); TOT PROT 5.8 g/dl (6.4-8.2)
[2020-10-07] MEDS: ATORVASTATIN CA 40 MG TABLET (FP) PEG SCH (22:14)
[2020-10-08] MEDS ORDERED: PT OWN MED DRAWER 7, Y5N ONE ×2 (09:42→22:53)
[2020-10-08 09:51] LABS: BASO % 1.1 % (0-2.0); EOS % 2.6 % (0-4.5); HEMATOCRIT 29.5 % (35.4-49); HEMOGLOBIN 9.7 GM/dL (11.7-16.9); LYMPH % 12.1 % (8-40); MEAN CELL VOLUME 90.9 fl (80-96); MEAN PLT VOLUME 8.3 fl (7.5-11.1); MONO % 5.5 % (3.8-10.2); NEUT % 78.7 % (42.8-82.8); PLATELET COUNT 453 K/MM3 (134-434); RBC 3.24 M/mm3 (4.00-5.60); RDW 17.4 % (11.9-15.9); WHITE BLOOD COUNT 13.5 K/mm3 (4.0-10.0)
[2020-10-08] MEDS: DOXAZOSIN MESYLATE 2 MG TABLET PEG SCH (09:51)
[2020-10-08] MEDS: FAMOTIDINE 40 MG/5 ML ORAL SUSPENSION PEG SCH ×2 (09:51→23:09)
[2020-10-08] MEDS: ENOXAPARIN NA (PORCINE) 40 MG/0.4 ML DISP.SYRIN SQ SCH (09:51)
[2020-10-08] MEDS: ASPIRIN 81 MG CHEWABLE TABLETS PEG SCH (09:51)
[2020-10-08] MEDS: POLYETHYLENE GLYCOL 3350 119 GM BTL PEG SCH (09:51)
[2020-10-08 10:36] LABS: BLOOD UREA NITROGEN 42.8 mg/dL (7-18); CALCIUM 8.7 mg/dL (8.5-10.1)
[2020-10-08 10:37] LABS: MAGNESIUM 3.1 mg/dL (1.8-2.4)
[2020-10-08 10:39] LABS: CREATININE 0.7 mg/dL (0.55-1.3)
[2020-10-08] MEDS: ATORVASTATIN CA 40 MG TABLET (FP) PEG SCH (23:09)
[2020-10-09 08:59] LABS: EOS % 2.6 % (0-4.5); HEMATOCRIT 30.5 % (35.4-49); LYMPH % 11.4 % (8-40); MCH 29.8 pg (25.7-33.7); MCHC 32.7 g/dl (32.0-35.9); MEAN CELL VOLUME 91.1 fl (80-96); MEAN PLT VOLUME 8.6 fl (7.5-11.1); PLATELET COUNT 434 K/MM3 (134-434); RBC 3.35 M/mm3 (4.00-5.60); RDW 16.9 % (11.9-15.9)
[2020-10-09 09:23] LABS: POTASSIUM 4.4 mmol/L (3.5-5.1)
[2020-10-09 09:27] LABS: BLOOD UREA NITROGEN 37.5 mg/dL (7-18)
[2020-10-09 09:31] LABS: CREATININE 0.8 mg/dL (0.55-1.3)
[2020-10-09] MEDS ORDERED: PT OWN MED DRAWER 7, Y5N ONE ×2 (10:48→21:51)
[2020-10-09] MEDS: DOXAZOSIN MESYLATE 2 MG TABLET PEG SCH (10:59)
[2020-10-09] MEDS: ASPIRIN 81 MG CHEWABLE TABLETS PEG SCH (11:00)
[2020-10-09] MEDS: ENOXAPARIN NA (PORCINE) 40 MG/0.4 ML DISP.SYRIN SQ SCH (11:00)
[2020-10-09] MEDS: FAMOTIDINE 40 MG/5 ML ORAL SUSPENSION PEG SCH ×2 (11:00→21:52)
[2020-10-09] MEDS: POLYETHYLENE GLYCOL 3350 119 GM BTL PEG SCH (11:00)
[2020-10-09 19:14] VITALS: BP 128/65; PULSE 88; TEMP 98.6
[2020-10-09] MEDS: ATORVASTATIN CA 40 MG TABLET (FP) PEG SCH (21:52)
== END 2020-10-09 22:30 | disposition home or self-care (01) | DRG 71 ==
LOC: JER 08:51 → JERBED 13:41 → J6WEST-2 19:05 → J5S 09-29 15:45
PROVIDERS: ADMIT Student in an Organized Health Care Education/Training Program; ATTEND Internal Medicine
PROC: 009U3ZX Drainage of Spinal Canal, Percutaneous Approach, Diagnostic (ICD-10-PCS; 2020-09-25)
PROC: 30233N1 Transfusion of Nonautologous Red Blood Cells into Peripheral Vein, Percutaneous Approach (ICD-10-PCS; 2020-09-25)
PROC: 3E0G36Z Introduction of Nutritional Substance into Upper GI, Percutaneous Approach (ICD-10-PCS; 2020-10-02)
PROC: 0DJ08ZZ Inspection of Upper Intestinal Tract, Via Natural or Artificial Opening Endoscopic (ICD-10-PCS; 2020-10-02)
PROC: 0DH63UZ Insertion of Feeding Device into Stomach, Percutaneous Approach (ICD-10-PCS; principal; 2020-10-02 09:42)
DX: G93.41 Metabolic encephalopathy (principal); E87.1 Hypo-osmolality and hyponatremia; N39.0 Urinary tract infection, site not specified; E46 Unspecified protein-calorie malnutrition; R64 Cachexia; E87.0 Hyperosmolality and hypernatremia; I10 Essential (primary) hypertension; N40.0 Benign prostatic hyperplasia without lower urinary tract symptoms; D18.02 Hemangioma of intracranial structures; E87.6 Hypokalemia; D64.9 Anemia, unspecified; F03.90 Unspecified dementia, unspecified severity, without behavioral disturbance, psychotic disturbance, mood disturbance, and anxiety; K59.00 Constipation, unspecified; D72.829 Elevated white blood cell count, unspecified; R13.10 Dysphagia, unspecified; Z68.23 Body mass index [BMI] 23.0-23.9, adult
CPT/HCPCS: 36415; 36430; 62272; 70450-TC; 70553-TC; 71045-TC-FY; 71250-TC; 74018-TC-FY; 74176-TC; 74230-TC-FY; 76098-TC-FY; 77002-TC-FY; 80048; 80053; 80061; 80076; 80307; 81003; 82105; 82272; 82308; 82378; 82533; 82550; 82728; 82803; 82945; 82962; 83010; 83036; 83540; 83550; 83605; 83615; 83721; 83735; 83930; 83935; 84100; 84153; 84157; 84443; 84484; 85025; 85027; 85045; 85379; 85384; 85610; 85730; 86140; 86301; 86618; 86780; 86850; 86900; 86901; 86922; 87040; 87070; 87086; 87186; 87205; 87804; 87899; 92611-GN; 93005; 93010; 93880-TC; 94761; 97162-GP; 99291; C9803; J0131; P9058; U0003

== ENCOUNTER 2020-10-21 18:00 | Inpatient (IN) | payer MEDICARE, OTHER ==
[2020-10-21 18:12] VITALS: BMI 28.3
[2020-10-21 19:16] LABS: BASO % 0.4 % (0-2.0); HEMATOCRIT 30.6 % (35.4-49); HEMOGLOBIN 9.9 GM/dL (11.7-16.9); MCH 28.8 pg (25.7-33.7); MCHC 32.3 g/dl (32.0-35.9); MEAN CELL VOLUME 89.1 fl (80-96); MEAN PLT VOLUME 8.9 fl (7.5-11.1); MONO % 6.8 % (3.8-10.2); NEUT % 76.8 % (42.8-82.8); PLATELET COUNT 307 K/MM3 (134-434); RBC 3.44 M/mm3 (4.00-5.60); RDW 17.4 % (11.9-15.9); WHITE BLOOD COUNT 16.8 K/mm3 (4.0-10.0)
[2020-10-21 19:24] LABS: INR 1.4 (0.83-1.09); PROTHROMBIN TIME (PATIENT) 17.1 SEC (9.7-13.0)
[2020-10-21 19:37] LABS: CHLORIDE 103 mmol/L (98-107); SODIUM 135 mmol/L (136-145)
[2020-10-21] MEDS ORDERED: ACETAMINOPHEN 1000 MG/100 ML VIAL (NON FORMULARY) IVPB ONE (19:37)
[2020-10-21] MEDS ORDERED: VANCOMYCIN 1 GM in D5W (PRE-DOCKED) 1,000 MG/250 ML IVPB ONE (19:38)
[2020-10-21 19:39] LABS: ALBUMIN 2.4 g/dl (3.4-5.0); ANION GAP 7 MMOL/L (8-16); BLOOD UREA NITROGEN 22.6 mg/dL (7-18); CALCIUM 8.5 mg/dL (8.5-10.1); CO2 26 mmol/L (21-32); GLUCOSE,RANDOM 95 mg/dL (74-106)
[2020-10-21 19:42] LABS: CREATININE 0.6 mg/dL (0.55-1.3); SGOT/AST 22 U/L (15-37); SGPT/ALT 21 U/L (13-61)
[2020-10-21 19:43] LABS: BILIRUBIN,TOTAL 0.4 mg/dL (0.2-1); TOT PROT 6.3 g/dl (6.4-8.2)
[2020-10-21 19:45] LABS: ALK PHOS 203 U/L (45-117)
[2020-10-21] MEDS ORDERED: ACETAMINOPHEN INJECTION 100 ML IVPB ONE (19:48)
[2020-10-21] MEDS ORDERED: VANCOMYCIN 1 GRAM (PRE-DOCKED) 1,000 MG/250 ML BAG IVPB ONE (19:48)
[2020-10-21] MEDS ORDERED: PIPERACILLIN/TAZOB 4.5 GM 4.5 GM in DEXTROSE 5%-WATER 100 ML IVPB ONE (19:48)
[2020-10-21] MEDS ORDERED: LACTATED RINGERS SOLUTION 1000 ML INFUS.BAG IV ONE (19:49)
[2020-10-21] MEDS ORDERED: PIPERACILLIN/TAZOB 4.5 GM 4.5 GM/100 ML BAG IVPB ONE (19:50)
[2020-10-21] MEDS ORDERED: CLINDAMYCIN 600MG PREMIX IVPB 600 MG/50 ML BAG IVPB ONE ×2 (20:11→20:46)
[2020-10-21 21:07] LABS: EPI CELLS 2 /uL (0-25.1); HYALINE CASTS 2 /uL (0-3.1); URINE APPEARANCE CLOUDY; URINE BACTERIA >9,000 /uL (0-1359); URINE BILIRUBIN NEGATIVE (NEGATIVE); URINE COLOR YELLOW; URINE GLUCOSE (UA) NEGATIVE (NEGATIVE); URINE KETONE NEGATIVE (NEGATIVE); URINE LEUK ESTERASE 3+ (NEGATIVE); URINE NITRITE POSITIVE (NEGATIVE); URINE PROTEIN NEGATIVE (NEGATIVE); URINE RBC 27 /uL (0-23.9); URINE WBC 666 /uL (0-25.8)
[2020-10-21] MEDS ORDERED: KETOROLAC TROMETHAMINE 30 MG/1 ML VIAL IVPUSH ONE (21:34)
[2020-10-21] MEDS ORDERED: KETOROLAC TROMETHAMINE 15 MG/ML VIAL ONE (21:54)
[2020-10-21] MEDS: DEXTROSE 5%-0.45% SALINE 1,000 ML IV SCH (23:59)
[2020-10-22] MEDS ORDERED: ACETAMINOPHEN 1000 MG/100 ML VIAL (NON FORMULARY) IVPB PRN (07:48)
[2020-10-22 07:51] LABS: BASO % 0.5 % (0-2.0); EOS % 2.4 % (0-4.5); HEMATOCRIT 26.9 % (35.4-49); HEMOGLOBIN 8.9 GM/dL (11.7-16.9); LYMPH % 7.5 % (8-40); MCH 29.5 pg (25.7-33.7); MCHC 33.2 g/dl (32.0-35.9); MEAN PLT VOLUME 8.6 fl (7.5-11.1); NEUT % 82.6 % (42.8-82.8); PLATELET COUNT 292 K/MM3 (134-434); RBC 3.02 M/mm3 (4.00-5.60); WHITE BLOOD COUNT 16.5 K/mm3 (4.0-10.0)
[2020-10-22 08:12] LABS: BLOOD UREA NITROGEN 17.7 mg/dL (7-18); CALCIUM 8.2 mg/dL (8.5-10.1)
[2020-10-22 08:15] LABS: CREATININE 0.6 mg/dL (0.55-1.3)
[2020-10-22 08:17] LABS: BILIRUBIN,TOTAL 0.7 mg/dL (0.2-1); TOT PROT 5.4 g/dl (6.4-8.2)
[2020-10-22] MEDS ORDERED: CLINDAMYCIN 600MG PREMIX IVPB 600 MG/50 ML BAG IVPB ONE ×2 (09:29→17:53)
[2020-10-22] MEDS ORDERED: ACETAMINOPHEN INJECTION 100 ML IVPB ONE (09:43)
[2020-10-22] MEDS ORDERED: CLINDAMYCIN 600MG PREMIX IVPB 600 MG/50 ML BAG IVPB SCH (10:00)
[2020-10-22] MEDS: DOXAZOSIN MESYLATE 2 MG TABLET PEG SCH (10:38)
[2020-10-22] MEDS ORDERED: PIPERACILLIN/TAZOB 3.375 GM 3.375 GM/50 ML BAG IVPB ONE (18:01)
[2020-10-22] MEDS: PIPERACILLIN/TAZOB 3.375 GM 3.375 GM in DEXTROSE 5%-WATER - 50 ML IVPB SCH (18:01)
[2020-10-22] MEDS: DEXTROSE 5%-0.45% SALINE 1,000 ML IV SCH ×2 (18:09→22:14)
[2020-10-22] MEDS ORDERED: PT OWN MED DRAWER 7, Y5N ONE (19:10)
[2020-10-22] MEDS ORDERED: VANCOMYCIN 1 GRAM (PRE-DOCKED) 1,000 MG/250 ML BAG IVPB ONE (20:48)
[2020-10-22] MEDS: VANCOMYCIN 1 GRAM (PRE-DOCKED) 1,000 MG/250 ML BAG IVPB SCH (21:02)
[2020-10-22] MEDS ORDERED: ATORVASTATIN CA 40 MG TABLET (FP) ONE (21:43)
[2020-10-22] MEDS: ATORVASTATIN CA 40 MG TABLET (FP) PEG SCH (22:14)
[2020-10-23] MEDS ORDERED: PIPERACILLIN/TAZOB 3.375 GM 3.375 GM/50 ML BAG IVPB ONE ×2 (01:01→08:50)
[2020-10-23] MEDS: PIPERACILLIN/TAZOB 3.375 GM 3.375 GM in DEXTROSE 5%-WATER - 50 ML IVPB SCH ×3 (01:48→21:54)
[2020-10-23] MEDS ORDERED: LORazepam 2 MG/ML SDV VIAL IVPUSH ONE (08:45)
[2020-10-23] MEDS ORDERED: levETIRAcetam 500 MG/5 ML INJECTION VIAL IVPB ONE ×2 (08:45→08:47)
[2020-10-23] MEDS ORDERED: PT OWN MED DRAWER 7, Y5N ONE (08:50)
[2020-10-23] MEDS: DOXAZOSIN MESYLATE 2 MG TABLET PEG SCH (09:05)
[2020-10-23 11:30] LABS: EOS % 3.2 % (0-4.5); HEMATOCRIT 24.3 % (35.4-49); HEMOGLOBIN 8.2 GM/dL (11.7-16.9); LYMPH % 14.5 % (8-40); MCH 29.5 pg (25.7-33.7); MCHC 33.8 g/dl (32.0-35.9); MEAN CELL VOLUME 87.4 fl (80-96); MEAN PLT VOLUME 7.8 fl (7.5-11.1); MONO % 7.1 % (3.8-10.2); NEUT % 74.2 % (42.8-82.8); PLATELET COUNT 262 K/MM3 (134-434); RBC 2.78 M/mm3 (4.00-5.60); WHITE BLOOD COUNT 11.9 K/mm3 (4.0-10.0)
[2020-10-23 11:55] LABS: CALCIUM 7.9 mg/dL (8.5-10.1)
[2020-10-23 11:56] LABS: ALBUMIN 1.8 g/dl (3.4-5.0); BLOOD UREA NITROGEN 15.6 mg/dL (7-18)
[2020-10-23 11:59] LABS: CREATININE 0.7 mg/dL (0.55-1.3)
[2020-10-23 12:00] LABS: BILIRUBIN,TOTAL 0.7 mg/dL (0.2-1); TOT PROT 5.2 g/dl (6.4-8.2)
[2020-10-23] MEDS: VANCOMYCIN 1 GRAM (PRE-DOCKED) 1,000 MG/250 ML BAG IVPB SCH (21:46)
[2020-10-23] MEDS: DEXTROSE 5%-0.45% SALINE 1,000 ML IV SCH (21:55)
[2020-10-23] MEDS: ATORVASTATIN CA 40 MG TABLET (FP) PEG SCH (21:55)
[2020-10-23] MEDS: HEPARIN NA (PORCINE) 5,000 UNITS/ML 1ML VIAL SQ SCH (23:42)
[2020-10-24] MEDS: PIPERACILLIN/TAZOB 3.375 GM 3.375 GM in DEXTROSE 5%-WATER - 50 ML IVPB SCH ×3 (04:00→18:42)
[2020-10-24] MEDS: HEPARIN NA (PORCINE) 5,000 UNITS/ML 1ML VIAL SQ SCH ×3 (06:12→21:11)
[2020-10-24 09:18] LABS: BASO % 1.1 % (0-2.0); HEMATOCRIT 28.6 % (35.4-49); HEMOGLOBIN 9.6 GM/dL (11.7-16.9); LYMPH % 20.1 % (8-40); MCH 29.7 pg (25.7-33.7); MCHC 33.5 g/dl (32.0-35.9); MEAN CELL VOLUME 88.6 fl (80-96); MEAN PLT VOLUME 8.1 fl (7.5-11.1); MONO % 6.8 % (3.8-10.2); PLATELET COUNT 304 K/MM3 (134-434); RBC 3.23 M/mm3 (4.00-5.60); WHITE BLOOD COUNT 9.8 K/mm3 (4.0-10.0)
[2020-10-24] MEDS ORDERED: PIPERACILLIN/TAZOBACTAM 3.375 GM VIAL IVPB ONE (09:46)
[2020-10-24] MEDS ORDERED: DEXTROSE 5%-WATER - 50 ML IVPB ONE (09:46)
[2020-10-24 10:06] LABS: CALCIUM 8.2 mg/dL (8.5-10.1)
[2020-10-24 10:07] LABS: BLOOD UREA NITROGEN 14.8 mg/dL (7-18)
[2020-10-24 10:09] LABS: CREATININE 0.7 mg/dL (0.55-1.3)
[2020-10-24 10:10] LABS: BILIRUBIN,TOTAL 0.6 mg/dL (0.2-1); TOT PROT 5.5 g/dl (6.4-8.2)
[2020-10-24] MEDS ORDERED: POTASSIUM CHLORIDE TABS 20 MEQ TABLET.ER (FP) PO ONE (10:43)
[2020-10-24] MEDS ORDERED: POTASSIUM CHLORIDE ORAL LIQUID 20 MEQ/15 ML PO ONE (11:00)
[2020-10-24] MEDS ORDERED: POTASSIUM CHLORIDE TABS 20 MEQ TABLET.ER (FP) PO SCH (11:00)
[2020-10-24] MEDS: DOXAZOSIN MESYLATE 2 MG TABLET PEG SCH (11:15)
[2020-10-24] MEDS: ASPIRIN COATED 81 MG TABLET.EC PO SCH (18:42)
[2020-10-24] MEDS: VANCOMYCIN 1 GRAM (PRE-DOCKED) 1,000 MG/250 ML BAG IVPB SCH (19:59)
[2020-10-24] MEDS: ATORVASTATIN CA 40 MG TABLET (FP) PEG SCH (21:11)
[2020-10-24] MEDS: DEXTROSE 5%-0.45% SALINE 1,000 ML IV SCH ×2 (21:11→23:12)
[2020-10-24] MEDS ORDERED: POTASSIUM CHLORIDE ORAL LIQUID 20 MEQ/15 ML GT ONE (22:00)
[2020-10-25] MEDS ORDERED: DEXTROSE 5%-WATER - 50 ML IVPB ONE ×3 (01:08→16:15)
[2020-10-25] MEDS ORDERED: PIPERACILLIN/TAZOBACTAM 3.375 GM VIAL IVPB ONE ×3 (01:08→16:15)
[2020-10-25] MEDS: PIPERACILLIN/TAZOB 3.375 GM 3.375 GM in DEXTROSE 5%-WATER - 50 ML IVPB SCH ×3 (02:03→17:32)
[2020-10-25] MEDS: HEPARIN NA (PORCINE) 5,000 UNITS/ML 1ML VIAL SQ SCH ×3 (05:31→21:49)
[2020-10-25 07:37] LABS: BASO % 1.4 % (0-2.0); EOS % 6.7 % (0-4.5); HEMATOCRIT 27.2 % (35.4-49); HEMOGLOBIN 9.3 GM/dL (11.7-16.9); LYMPH % 18.3 % (8-40); MCHC 34.2 g/dl (32.0-35.9); MEAN CELL VOLUME 87.8 fl (80-96); MEAN PLT VOLUME 7.5 fl (7.5-11.1); NEUT % 66.6 % (42.8-82.8); PLATELET COUNT 291 K/MM3 (134-434); RDW 16.7 % (11.9-15.9); WHITE BLOOD COUNT 8.9 K/mm3 (4.0-10.0)
[2020-10-25 08:04] LABS: CALCIUM 7.9 mg/dL (8.5-10.1)
[2020-10-25 08:05] LABS: BLOOD UREA NITROGEN 10.6 mg/dL (7-18)
[2020-10-25 08:06] LABS: CREATININE 0.6 mg/dL (0.55-1.3); PHOSPHOROUS 2.9 mg/dL (2.5-4.9)
[2020-10-25 08:07] LABS: BILIRUBIN,TOTAL 0.4 mg/dL (0.2-1)
[2020-10-25 08:08] LABS: TOT PROT 5.6 g/dl (6.4-8.2)
[2020-10-25] MEDS: DOXAZOSIN MESYLATE 2 MG TABLET PEG SCH (09:21)
[2020-10-25] MEDS: ASPIRIN COATED 81 MG TABLET.EC PO SCH (09:22)
[2020-10-25] MEDS: ATORVASTATIN CA 40 MG TABLET (FP) PEG SCH (21:49)
[2020-10-25] MEDS: VANCOMYCIN 1 GRAM (PRE-DOCKED) 1,000 MG/250 ML BAG IVPB SCH (21:49)
[2020-10-26] MEDS ORDERED: DEXTROSE 5%-WATER - 50 ML IVPB ONE ×3 (01:22→17:04)
[2020-10-26] MEDS ORDERED: PIPERACILLIN/TAZOBACTAM 3.375 GM VIAL IVPB ONE ×3 (01:22→17:04)
[2020-10-26] MEDS: PIPERACILLIN/TAZOB 3.375 GM 3.375 GM in DEXTROSE 5%-WATER - 50 ML IVPB SCH ×3 (02:21→17:26)
[2020-10-26] MEDS: HEPARIN NA (PORCINE) 5,000 UNITS/ML 1ML VIAL SQ SCH ×3 (06:47→21:06)
[2020-10-26 07:27] LABS: BASO % 1.3 % (0-2.0); EOS % 8.2 % (0-4.5); HEMATOCRIT 25.4 % (35.4-49); HEMOGLOBIN 8.6 GM/dL (11.7-16.9); LYMPH % 19.3 % (8-40); MCH 29.6 pg (25.7-33.7); MCHC 33.9 g/dl (32.0-35.9); MEAN CELL VOLUME 87.4 fl (80-96); MEAN PLT VOLUME 7.4 fl (7.5-11.1); MONO % 8.3 % (3.8-10.2); NEUT % 62.9 % (42.8-82.8); PLATELET COUNT 281 K/MM3 (134-434); RBC 2.91 M/mm3 (4.00-5.60); WHITE BLOOD COUNT 7.4 K/mm3 (4.0-10.0)
[2020-10-26 08:00] LABS: CALCIUM 7.9 mg/dL (8.5-10.1)
[2020-10-26 08:01] LABS: BLOOD UREA NITROGEN 11.4 mg/dL (7-18)
[2020-10-26 08:03] LABS: PHOSPHOROUS 3.3 mg/dL (2.5-4.9)
[2020-10-26 08:04] LABS: CREATININE 0.7 mg/dL (0.55-1.3)
[2020-10-26 08:05] LABS: BILIRUBIN,TOTAL 0.4 mg/dL (0.2-1); TOT PROT 5.3 g/dl (6.4-8.2)
[2020-10-26] MEDS: ASPIRIN 81 MG CHEWABLE TABLETS PO SCH (10:17)
[2020-10-26] MEDS: DOXAZOSIN MESYLATE 2 MG TABLET PEG SCH (10:17)
[2020-10-26] MEDS ORDERED: POTASSIUM CHLORIDE TABS 20 MEQ TABLET.ER (FP) PO ONE (11:00)
[2020-10-26] MEDS: ATORVASTATIN CA 40 MG TABLET (FP) PEG SCH (21:06)
[2020-10-27] MEDS ORDERED: PIPERACILLIN/TAZOBACTAM 3.375 GM VIAL IVPB ONE ×3 (01:39→17:13)
[2020-10-27] MEDS ORDERED: DEXTROSE 5%-WATER - 50 ML IVPB ONE ×3 (01:39→17:13)
[2020-10-27] MEDS: PIPERACILLIN/TAZOB 3.375 GM 3.375 GM in DEXTROSE 5%-WATER - 50 ML IVPB SCH ×3 (02:02→18:18)
[2020-10-27] MEDS: HEPARIN NA (PORCINE) 5,000 UNITS/ML 1ML VIAL SQ SCH ×2 (05:06→14:23)
[2020-10-27 06:51] LABS: BASO % 1.2 % (0-2.0); EOS % 6.8 % (0-4.5); HEMATOCRIT 25.9 % (35.4-49); LYMPH % 16.1 % (8-40); MCH 30.2 pg (25.7-33.7); MCHC 34.9 g/dl (32.0-35.9); MEAN CELL VOLUME 86.4 fl (80-96); MEAN PLT VOLUME 7.1 fl (7.5-11.1); NEUT % 69.9 % (42.8-82.8); PLATELET COUNT 265 K/MM3 (134-434); RBC 2.99 M/mm3 (4.00-5.60); RDW 17.3 % (11.9-15.9); WHITE BLOOD COUNT 9.1 K/mm3 (4.0-10.0)
[2020-10-27 07:21] LABS: BLOOD UREA NITROGEN 11.8 mg/dL (7-18)
[2020-10-27 07:23] LABS: ALBUMIN 1.9 g/dl (3.4-5.0)
[2020-10-27 07:25] LABS: CALCIUM 7.8 mg/dL (8.5-10.1)
[2020-10-27 07:27] LABS: BILIRUBIN,TOTAL 0.4 mg/dL (0.2-1); CREATININE 0.6 mg/dL (0.55-1.3); PHOSPHOROUS 3.2 mg/dL (2.5-4.9); TOT PROT 5.3 g/dl (6.4-8.2)
[2020-10-27] MEDS ORDERED: DOXYCYCLINE MONOHYDRATE 25 MG/5 ML SUSPENSION PEG SCH ×3 (08:15→10:00)
[2020-10-27] MEDS ORDERED: PT OWN MED DRAWER 7, Y5N ONE (10:32)
[2020-10-27] MEDS: ASPIRIN 81 MG CHEWABLE TABLETS PO SCH (10:35)
[2020-10-27] MEDS: DOXAZOSIN MESYLATE 2 MG TABLET PEG SCH (10:35)
[2020-10-27] MEDS: DOXYCYCLINE MONOHYDRATE 25 MG/5 ML SUSPENSION PEG SCH ×2 (10:35→18:18)
[2020-10-27 20:06] VITALS: BP 123/74; PULSE 73; TEMP 97.9
== END 2020-10-27 20:40 | disposition home or self-care (01) | DRG 689 ==
LOC: JER 18:00 → JERBED 21:05 → J6WEST-2 10-23 20:59 → J4S 10-24 23:11
PROVIDERS: ADMIT Hospitalist; ATTEND Student in an Organized Health Care Education/Training Program
DX: N39.0 Urinary tract infection, site not specified (principal); G93.41 Metabolic encephalopathy; N40.0 Benign prostatic hyperplasia without lower urinary tract symptoms; I10 Essential (primary) hypertension; F03.90 Unspecified dementia, unspecified severity, without behavioral disturbance, psychotic disturbance, mood disturbance, and anxiety; Z93.1 Gastrostomy status; R60.9 Edema, unspecified; G24.9 Dystonia, unspecified; K11.20 Sialoadenitis, unspecified; R09.02 Hypoxemia; D72.829 Elevated white blood cell count, unspecified; E87.6 Hypokalemia; E78.5 Hyperlipidemia, unspecified; A49.02 Methicillin resistant Staphylococcus aureus infection, unspecified site
CPT/HCPCS: 36415; 70450-TC; 70491-TC; 70496-TC; 70498-TC; 71045-TC-FY; 80053; 81003; 82550; 83605; 83735; 84100; 84484; 85025; 85610; 85730; 86850; 86900; 86901; 87040; 87070; 87086; 87186; 87880; 93005; 93010; 97162-GP; 99291; C9803; J0131; J1644; U0003; U0005

== ENCOUNTER 2020-10-30 14:05 | Inpatient (IN) | payer MEDICARE, OTHER ==
[2020-10-30] MEDS ORDERED: LORazepam 2 MG/ML SDV VIAL ONE (14:15)
[2020-10-30] MEDS ORDERED: levETIRAcetam 500 MG/5 ML INJECTION VIAL IVPB ONE ×2 (14:29→14:30)
[2020-10-30 14:30] VITALS: BMI 24.7
[2020-10-30] MEDS ORDERED: LORazepam 2 MG/ML SDV VIAL IVPUSH ONE (14:32)
[2020-10-30 15:07] LABS: BASO % 0.9 % (0-2.0); EOS % 4.6 % (0-4.5); HEMATOCRIT 25.4 % (35.4-49); HEMOGLOBIN 8.3 GM/dL (11.7-16.9); LYMPH % 17.9 % (8-40); MCH 29.4 pg (25.7-33.7); MCHC 32.8 g/dl (32.0-35.9); MEAN CELL VOLUME 89.6 fl (80-96); MEAN PLT VOLUME 7.6 fl (7.5-11.1); MONO % 8.5 % (3.8-10.2); NEUT % 68.1 % (42.8-82.8); PLATELET COUNT 241 K/MM3 (134-434); RBC 2.84 M/mm3 (4.00-5.60); WHITE BLOOD COUNT 9.9 K/mm3 (4.0-10.0)
[2020-10-30 15:08] LABS: VENOUS BASE EXCESS -0.3 mmol/L (-2-2); VENOUS PCO2 40.8 mmHg (38-52); VENOUS PH 7.397 (7.310-7.410)
[2020-10-30 15:22] LABS: INR 1.38 (0.83-1.09); PROTHROMBIN TIME (PATIENT) 16.5 SEC (9.7-13.0)
[2020-10-30 15:24] LABS: ACTIVATED PTT 31.3 SECONDS (25.2-36.5)
[2020-10-30 15:30] LABS: CHLORIDE 109 mmol/L (98-107); SODIUM 140 mmol/L (136-145)
[2020-10-30 15:32] LABS: ANION GAP 6 MMOL/L (8-16); BLOOD UREA NITROGEN 18.5 mg/dL (7-18); CALCIUM 8.4 mg/dL (8.5-10.1); CO2 25 mmol/L (21-32)
[2020-10-30 15:33] LABS: GLUCOSE,RANDOM 90 mg/dL (74-106)
[2020-10-30 15:35] LABS: SGPT/ALT 25 U/L (13-61)
[2020-10-30 15:36] LABS: CREATININE 0.6 mg/dL (0.55-1.3); SGOT/AST 26 U/L (15-37)
[2020-10-30 15:37] LABS: BILIRUBIN,TOTAL 0.2 mg/dL (0.2-1); TOT PROT 5.4 g/dl (6.4-8.2)
[2020-10-30 15:38] LABS: ALK PHOS 140 U/L (45-117)
[2020-10-30] MEDS: LACTATED RINGERS SOLUTION 1,000 ML/1,000 ML INFUS.BAG IV SCH (16:20)
[2020-10-30 16:45] LABS: EPI CELLS 7 /uL (0-25.1); HYALINE CASTS 1 /uL (0-3.1); URINE APPEARANCE CLEAR; URINE BACTERIA 211 /uL (0-1359); URINE BILIRUBIN NEGATIVE (NEGATIVE); URINE COLOR DK YELLOW; URINE GLUCOSE (UA) NEGATIVE (NEGATIVE); URINE KETONE NEGATIVE (NEGATIVE); URINE LEUK ESTERASE TRACE (NEGATIVE); URINE NITRITE NEGATIVE (NEGATIVE); URINE PROTEIN NEGATIVE (NEGATIVE); URINE RBC 4 /uL (0-23.9); URINE UROBILINOGEN 0.2 mg/dL (0.2-1.0); URINE WBC 28 /uL (0-25.8)
[2020-10-30 21:04] LABS: URINE AMPHETAMINES NEGATIVE ng/ml (CUTOFF=500)
[2020-10-30 21:05] LABS: METHADONE, UR NEGATIVE ng/ml (CUTOFF=300); OPIATES, URI NEGATIVE ng/ml (CUTOFF=300); URINE BARBITURATES NEGATIVE ng/ml (CUTOFF=200)
[2020-10-30 21:06] LABS: PHENCYCLIDINE,URINE NEGATIVE ng/ml (CUTOFF=25)
[2020-10-30 21:08] LABS: COCAINE, UR NEGATIVE ng/ml (CUTOFF=300); URINE BENZODIAZEPINES POSITIVE ng/ml (CUTOFF=200)
[2020-10-30] MEDS ORDERED: PHENYTOIN SODIUM 100 MG/2 ML VIAL IVPB ONE (21:27)
[2020-10-30] MEDS ORDERED: levETIRAcetam 500 MG/5 ML INJECTION VIAL IVPB SCH (22:00)
[2020-10-30] MEDS ORDERED: ATORVASTATIN CA 40 MG TABLET (FP) ONE (22:06)
[2020-10-30] MEDS: ATORVASTATIN CA 40 MG TABLET (FP) PEG SCH (22:14)
[2020-10-30] MEDS ORDERED: SODIUM CHLORIDE IVPB ONE (23:15)
[2020-10-30] MEDS ORDERED: PHENYTOIN SODIUM IVPB ONE (23:15)
[2020-10-30] MEDS ORDERED: DOXYCYCLINE HYCLATE 100 MG VIAL ONE (23:16)
[2020-10-30] MEDS ORDERED: PIPERACILLIN/TAZOB 3.375 GM 3.375 GM/50 ML BAG IVPB ONE (23:16)
[2020-10-30] MEDS: PIPERACILLIN/TAZOB 3.375 GM 3.375 GM in DEXTROSE 5%-WATER - 50 ML IVPB SCH (23:18)
[2020-10-31] MEDS: DOXYCYCLINE INJECTION 100 MG in DEXTROSE 5%-WATER 100 ML IVPB SCH ×3 (00:03→21:21)
[2020-10-31] MEDS ORDERED: LORazepam 2 MG/ML SDV VIAL IVPB ONE (02:30)
[2020-10-31] MEDS ORDERED: PIPERACILLIN/TAZOB 3.375 GM 3.375 GM/50 ML BAG IVPB ONE ×2 (05:27→09:50)
[2020-10-31] MEDS: PIPERACILLIN/TAZOB 3.375 GM 3.375 GM in DEXTROSE 5%-WATER - 50 ML IVPB SCH ×3 (05:31→22:07)
[2020-10-31 06:31] LABS: HEMATOCRIT 24.6 % (35.4-49); HEMOGLOBIN 8.2 GM/dL (11.7-16.9); MCH 29.5 pg (25.7-33.7); MCHC 33.2 g/dl (32.0-35.9); MEAN CELL VOLUME 88.7 fl (80-96); MEAN PLT VOLUME 7.3 fl (7.5-11.1); PLATELET COUNT 231 K/MM3 (134-434); RBC 2.77 M/mm3 (4.00-5.60); RDW 18.1 % (11.9-15.9); WHITE BLOOD COUNT 12.8 K/mm3 (4.0-10.0)
[2020-10-31 06:47] LABS: CALCIUM 8.1 mg/dL (8.5-10.1)
[2020-10-31 06:51] LABS: CREATININE 0.5 mg/dL (0.55-1.3)
[2020-10-31] MEDS: HEPARIN NA (PORCINE) 5,000 UNITS/ML 1ML VIAL SQ SCH ×3 (08:00→21:21)
[2020-10-31] MEDS ORDERED: levETIRAcetam 500 MG/5 ML INJECTION VIAL IVPB ONE (09:49)
[2020-10-31] MEDS ORDERED: HEPARIN NA (PORCINE) 5,000 UNITS/ML 1ML VIAL ONE (09:49)
[2020-10-31] MEDS ORDERED: ASPIRIN COATED 81 MG TABLET.EC PO SCH (10:00)
[2020-10-31] MEDS ORDERED: amLODIPine BESYLATE 5 MG TABLET (FP) PEG SCH (10:00)
[2020-10-31] MEDS ORDERED: DOXAZOSIN MESYLATE 2 MG TABLET PEG SCH (10:00)
[2020-10-31] MEDS ORDERED: PHENYTOIN SODIUM 100 MG/2 ML VIAL IVPB SCH (10:00)
[2020-10-31] MEDS: levETIRAcetam 500 MG/5 ML INJECTION VIAL IVPB SCH ×2 (10:28→21:21)
[2020-10-31] MEDS ORDERED: LORazepam 2 MG/ML SDV VIAL IVPUSH ONE ×3 (11:11→20:34)
[2020-10-31] MEDS: LACTATED RINGERS SOLUTION 1,000 ML/1,000 ML INFUS.BAG IV SCH (16:51)
[2020-10-31] MEDS: DEXTROSE 5%-LACTATED RINGERS 1,000 ML IV SCH (17:45)
[2020-10-31] MEDS: LORazepam 2 MG/ML SDV VIAL IVPUSH PRN (19:48)
[2020-10-31] MEDS ORDERED: MORPHINE SULFATE 2 MG/ML VIAL IVPUSH PRN (19:51)
[2020-10-31] MEDS ORDERED: DOXYCYCLINE HYCLATE 100 MG VIAL ONE (20:14)
[2020-10-31] MEDS ORDERED: DEXTROSE 5%-WATER 100 ML IVPB ONE (20:14)
[2020-10-31] MEDS ORDERED: DEXTROSE 5%-WATER - 50 ML IVPB ONE (21:50)
[2020-10-31] MEDS ORDERED: PIPERACILLIN/TAZOBACTAM 3.375 GM VIAL IVPB ONE (21:50)
[2020-10-31] MEDS: DIVALPROEX SODIUM 125 MG SPRINKLE CAPS GT SCH (22:07)
[2020-10-31] MEDS: ATORVASTATIN CA 40 MG TABLET (FP) PEG SCH (22:07)
[2020-11-01] MEDS ORDERED: PIPERACILLIN/TAZOBACTAM 3.375 GM VIAL IVPB ONE ×3 (01:24→17:10)
[2020-11-01] MEDS ORDERED: DEXTROSE 5%-WATER - 50 ML IVPB ONE ×3 (01:25→17:11)
[2020-11-01] MEDS: LORazepam 2 MG/ML SDV VIAL IVPUSH PRN ×4 (01:44→21:24)
[2020-11-01] MEDS ORDERED: LACTATED RINGERS SOLUTION 1,000 ML/1,000 ML INFUS.BAG IV STA (02:14)
[2020-11-01] MEDS: PIPERACILLIN/TAZOB 3.375 GM 3.375 GM in DEXTROSE 5%-WATER - 50 ML IVPB SCH ×6 (03:05→19:29)
[2020-11-01] MEDS: HEPARIN NA (PORCINE) 5,000 UNITS/ML 1ML VIAL SQ SCH ×3 (06:00→21:25)
[2020-11-01 07:14] LABS: HEMATOCRIT 25.7 % (35.4-49); HEMOGLOBIN 8.3 GM/dL (11.7-16.9); MCH 29.5 pg (25.7-33.7); MCHC 32.2 g/dl (32.0-35.9); MEAN CELL VOLUME 91.4 fl (80-96); PLATELET COUNT 213 K/MM3 (134-434); RBC 2.81 M/mm3 (4.00-5.60); RDW 18.4 % (11.9-15.9); WHITE BLOOD COUNT 10.9 K/mm3 (4.0-10.0)
[2020-11-01 07:34] LABS: CALCIUM 8.2 mg/dL (8.5-10.1)
[2020-11-01 07:37] LABS: ALBUMIN 1.8 g/dl (3.4-5.0); BLOOD UREA NITROGEN 11.9 mg/dL (7-18)
[2020-11-01 07:38] LABS: BILIRUBIN,TOTAL 0.6 mg/dL (0.2-1); CREATININE 0.6 mg/dL (0.55-1.3)
[2020-11-01] MEDS ORDERED: AMOX TR/POT CLAV 875MG/125MG TABLETS (FP) PO SCH (08:00)
[2020-11-01] MEDS ORDERED: DOXYCYCLINE HYCLATE 100 MG VIAL ONE ×2 (08:45→20:53)
[2020-11-01] MEDS ORDERED: DEXTROSE 5%-WATER 100 ML IVPB ONE ×2 (08:46→20:53)
[2020-11-01] MEDS: DOXYCYCLINE INJECTION 100 MG in DEXTROSE 5%-WATER 100 ML IVPB SCH ×2 (09:02→22:13)
[2020-11-01] MEDS: levETIRAcetam 500 MG/5 ML INJECTION VIAL IVPB SCH ×2 (09:02→21:25)
[2020-11-01] MEDS: DIVALPROEX SODIUM 125 MG SPRINKLE CAPS GT SCH ×2 (09:03→21:24)
[2020-11-01] MEDS ORDERED: LACTATED RINGERS SOLUTION 1,000 ML/1,000 ML INFUS.BAG IV ONE (11:08)
[2020-11-01] MEDS: DEXTROSE 5%-LACTATED RINGERS 1,000 ML IV SCH (17:34)
[2020-11-01] MEDS: ATORVASTATIN CA 40 MG TABLET (FP) PEG SCH (21:25)
[2020-11-02] MEDS ORDERED: DEXTROSE 5%-WATER - 50 ML IVPB ONE ×3 (02:23→18:14)
[2020-11-02] MEDS ORDERED: PIPERACILLIN/TAZOBACTAM 3.375 GM VIAL IVPB ONE ×3 (02:23→18:14)
[2020-11-02] MEDS: PIPERACILLIN/TAZOB 3.375 GM 3.375 GM in DEXTROSE 5%-WATER - 50 ML IVPB SCH ×3 (02:49→18:20)
[2020-11-02] MEDS: HEPARIN NA (PORCINE) 5,000 UNITS/ML 1ML VIAL SQ SCH ×3 (06:01→21:24)
[2020-11-02 07:10] LABS: BASO % 0.6 % (0-2.0); EOS % 2.3 % (0-4.5); HEMATOCRIT 26.5 % (35.4-49); HEMOGLOBIN 8.6 GM/dL (11.7-16.9); LYMPH % 16.3 % (8-40); MCH 29.3 pg (25.7-33.7); MCHC 32.4 g/dl (32.0-35.9); MEAN CELL VOLUME 90.5 fl (80-96); MEAN PLT VOLUME 7.9 fl (7.5-11.1); MONO % 11.2 % (3.8-10.2); NEUT % 69.6 % (42.8-82.8); PLATELET COUNT 217 K/MM3 (134-434); RBC 2.93 M/mm3 (4.00-5.60); RDW 17.9 % (11.9-15.9); WHITE BLOOD COUNT 11.6 K/mm3 (4.0-10.0)
[2020-11-02 07:34] LABS: CALCIUM 8.4 mg/dL (8.5-10.1)
[2020-11-02 07:37] LABS: ALBUMIN 1.8 g/dl (3.4-5.0); BLOOD UREA NITROGEN 7.3 mg/dL (7-18); MAGNESIUM 1.7 mg/dL (1.8-2.4)
[2020-11-02 07:40] LABS: CREATININE 0.5 mg/dL (0.55-1.3); PHOSPHOROUS 3.1 mg/dL (2.5-4.9)
[2020-11-02 07:41] LABS: BILIRUBIN,TOTAL 0.4 mg/dL (0.2-1)
[2020-11-02 07:42] LABS: TOT PROT 5.1 g/dl (6.4-8.2)
[2020-11-02] MEDS ORDERED: AMINO ACIDS 4.25%/D5W 1,000 ML IV SCH (08:00)
[2020-11-02] MEDS ORDERED: DOXYCYCLINE HYCLATE 100 MG VIAL ONE ×2 (09:10→20:52)
[2020-11-02] MEDS ORDERED: DEXTROSE 5%-WATER 100 ML IVPB ONE ×2 (09:10→20:52)
[2020-11-02] MEDS: DIVALPROEX SODIUM 125 MG SPRINKLE CAPS GT SCH ×2 (09:15→21:25)
[2020-11-02] MEDS: levETIRAcetam 500 MG/5 ML INJECTION VIAL IVPB SCH ×2 (09:15→21:17)
[2020-11-02] MEDS: DOXYCYCLINE INJECTION 100 MG in DEXTROSE 5%-WATER 100 ML IVPB SCH ×2 (09:16→21:13)
[2020-11-02] MEDS: LORazepam 2 MG/ML SDV VIAL IVPUSH PRN ×2 (09:17→13:55)
[2020-11-02] MEDS ORDERED: MORPHINE SULFATE 2 MG/ML VIAL IVPUSH PRN (18:28)
[2020-11-02] MEDS: DEXTROSE 5%-LACTATED RINGERS 1,000 ML IV SCH ×2 (18:35→18:58)
[2020-11-02] MEDS: ATORVASTATIN CA 40 MG TABLET (FP) PEG SCH (21:26)
[2020-11-03] MEDS ORDERED: DEXTROSE 5%-WATER - 50 ML IVPB ONE ×3 (01:31→17:08)
[2020-11-03] MEDS ORDERED: PIPERACILLIN/TAZOBACTAM 3.375 GM VIAL IVPB ONE ×3 (01:31→17:07)
[2020-11-03] MEDS: PIPERACILLIN/TAZOB 3.375 GM 3.375 GM in DEXTROSE 5%-WATER - 50 ML IVPB SCH ×3 (01:42→17:12)
[2020-11-03] MEDS: HEPARIN NA (PORCINE) 5,000 UNITS/ML 1ML VIAL SQ SCH ×3 (05:59→21:31)
[2020-11-03 08:11] LABS: HEMOGLOBIN 8.2 GM/dL (11.7-16.9); MCH 30.1 pg (25.7-33.7); MEAN CELL VOLUME 88.5 fl (80-96); MEAN PLT VOLUME 7.5 fl (7.5-11.1); PLATELET COUNT 222 K/MM3 (134-434); RBC 2.71 M/mm3 (4.00-5.60); WHITE BLOOD COUNT 8.7 K/mm3 (4.0-10.0)
[2020-11-03 08:27] LABS: CALCIUM 7.8 mg/dL (8.5-10.1)
[2020-11-03 08:28] LABS: ALBUMIN 1.5 g/dl (3.4-5.0); BLOOD UREA NITROGEN 7.8 mg/dL (7-18)
[2020-11-03] MEDS: AMINO ACIDS 4.25%/D5W 1,000 ML IV SCH (08:30)
[2020-11-03 08:31] LABS: CREATININE 0.5 mg/dL (0.55-1.3)
[2020-11-03 08:33] LABS: BILIRUBIN,TOTAL 0.4 mg/dL (0.2-1); TOT PROT 4.7 g/dl (6.4-8.2)
[2020-11-03] MEDS ORDERED: MAGNESIUM OXIDE 400 MG TABLET (FP) PO ONE (08:46)
[2020-11-03] MEDS ORDERED: DOXYCYCLINE HYCLATE 100 MG VIAL ONE ×2 (08:53→21:28)
[2020-11-03] MEDS ORDERED: DEXTROSE 5%-WATER 100 ML IVPB ONE ×2 (08:53→21:28)
[2020-11-03] MEDS ORDERED: PT OWN MED DRAWER 7, Y5N ONE ×3 (08:54→21:29)
[2020-11-03] MEDS: POTASSIUM CHLORIDE ORAL LIQUID 20 MEQ/15 ML GT SCH ×2 (09:04→14:41)
[2020-11-03] MEDS: levETIRAcetam 500 MG/5 ML INJECTION VIAL IVPB SCH ×2 (09:05→22:51)
[2020-11-03 09:17] LABS: MAGNESIUM 1.7 mg/dL (1.8-2.4)
[2020-11-03 09:21] LABS: PHOSPHOROUS 2.8 mg/dL (2.5-4.9)
[2020-11-03] MEDS ORDERED: MAGNESIUM 2GM/50ML STERILE WATER IVPB IVPB ONE (10:00)
[2020-11-03] MEDS: DOXYCYCLINE INJECTION 100 MG in DEXTROSE 5%-WATER 100 ML IVPB SCH ×2 (10:30→21:32)
[2020-11-03] MEDS: DIVALPROEX SODIUM 125 MG SPRINKLE CAPS GT SCH ×2 (10:31→22:50)
[2020-11-03] MEDS: KCL 10 MEQ IVPB 10 MEQ/100 ML INFUS.BAG IVPB SCH ×3 (11:34→13:20)
[2020-11-03] MEDS: DEXTROSE 5%-LACTATED RINGERS 1,000 ML IV SCH (19:15)
[2020-11-03] MEDS: ATORVASTATIN CA 40 MG TABLET (FP) PEG SCH (21:32)
[2020-11-04] MEDS ORDERED: PIPERACILLIN/TAZOB 3.375 GM 3.375 GM in DEXTROSE 5%-WATER - 50 ML IVPB SCH (02:00)
[2020-11-04] MEDS ORDERED: DEXTROSE 5%-WATER - 50 ML IVPB ONE ×2 (02:15→17:59)
[2020-11-04] MEDS ORDERED: PIPERACILLIN/TAZOBACTAM 3.375 GM VIAL IVPB ONE ×3 (02:15→17:59)
[2020-11-04] MEDS: PIPERACILLIN/TAZOB 3.375 GM 3.375 GM in DEXTROSE 5%-WATER - 50 ML IVPB SCH ×3 (02:18→18:26)
[2020-11-04] MEDS: HEPARIN NA (PORCINE) 5,000 UNITS/ML 1ML VIAL SQ SCH ×3 (05:25→21:15)
[2020-11-04 08:38] LABS: BASO % 0.4 % (0-2.0); EOS % 1.5 % (0-4.5); HEMATOCRIT 25.5 % (35.4-49); HEMOGLOBIN 8.5 GM/dL (11.7-16.9); LYMPH % 16.1 % (8-40); MCH 29.7 pg (25.7-33.7); MCHC 33.4 g/dl (32.0-35.9); MEAN CELL VOLUME 88.9 fl (80-96); MEAN PLT VOLUME 7.4 fl (7.5-11.1); MONO % 8.3 % (3.8-10.2); NEUT % 73.7 % (42.8-82.8); PLATELET COUNT 260 K/MM3 (134-434); RBC 2.87 M/mm3 (4.00-5.60); RDW 18.6 % (11.9-15.9); WHITE BLOOD COUNT 9.6 K/mm3 (4.0-10.0)
[2020-11-04] MEDS: AMINO ACIDS 4.25%/D5W 1,000 ML IV SCH (08:42)
[2020-11-04] MEDS ORDERED: DOXYCYCLINE HYCLATE 100 MG VIAL ONE ×2 (09:15→20:52)
[2020-11-04] MEDS ORDERED: DEXTROSE 5%-WATER 100 ML IVPB ONE ×2 (09:15→20:52)
[2020-11-04] MEDS ORDERED: PT OWN MED DRAWER 7, Y5N ONE (09:17)
[2020-11-04 09:26] LABS: ALBUMIN 1.6 g/dl (3.4-5.0); BLOOD UREA NITROGEN 12.8 mg/dL (7-18); CALCIUM 8.3 mg/dL (8.5-10.1)
[2020-11-04 09:29] LABS: CREATININE 0.5 mg/dL (0.55-1.3)
[2020-11-04 09:30] LABS: PHOSPHOROUS 2.4 mg/dL (2.5-4.9)
[2020-11-04 09:31] LABS: BILIRUBIN,TOTAL 0.4 mg/dL (0.2-1)
[2020-11-04] MEDS ORDERED: NAPH,MB-DB/K PH,MBDB POWDER PACKET GT ONE (10:19)
[2020-11-04] MEDS ORDERED: FUROSEMIDE 40 MG/4 ML INJECTABLE VIAL IVPUSH ONE (10:43)
[2020-11-04] MEDS: DIVALPROEX SODIUM 125 MG SPRINKLE CAPS GT SCH ×2 (11:01→21:14)
[2020-11-04] MEDS: levETIRAcetam 500 MG/5 ML INJECTION VIAL IVPB SCH ×2 (11:02→21:13)
[2020-11-04] MEDS: DOXYCYCLINE INJECTION 100 MG in DEXTROSE 5%-WATER 100 ML IVPB SCH ×2 (13:30→23:24)
[2020-11-04] MEDS: ATORVASTATIN CA 40 MG TABLET (FP) PEG SCH (21:14)
[2020-11-05] MEDS ORDERED: PIPERACILLIN/TAZOBACTAM 3.375 GM VIAL IVPB ONE ×3 (01:40→17:19)
[2020-11-05] MEDS ORDERED: DEXTROSE 5%-WATER - 50 ML IVPB ONE ×2 (01:40→09:37)
[2020-11-05] MEDS: PIPERACILLIN/TAZOB 3.375 GM 3.375 GM in DEXTROSE 5%-WATER - 50 ML IVPB SCH ×3 (01:53→17:18)
[2020-11-05] MEDS: HEPARIN NA (PORCINE) 5,000 UNITS/ML 1ML VIAL SQ SCH ×3 (06:38→21:21)
[2020-11-05 08:36] LABS: BASO % 0.5 % (0-2.0); EOS % 0.9 % (0-4.5); HEMATOCRIT 24.8 % (35.4-49); HEMOGLOBIN 8.3 GM/dL (11.7-16.9); LYMPH % 23.7 % (8-40); MCH 29.8 pg (25.7-33.7); MCHC 33.7 g/dl (32.0-35.9); MEAN CELL VOLUME 88.6 fl (80-96); MEAN PLT VOLUME 7.6 fl (7.5-11.1); MONO % 8.8 % (3.8-10.2); NEUT % 66.1 % (42.8-82.8); PLATELET COUNT 266 K/MM3 (134-434); RBC 2.79 M/mm3 (4.00-5.60); RDW 18.6 % (11.9-15.9); WHITE BLOOD COUNT 5.9 K/mm3 (4.0-10.0)
[2020-11-05 08:58] LABS: ALBUMIN 1.5 g/dl (3.4-5.0); CALCIUM 8.2 mg/dL (8.5-10.1)
[2020-11-05 08:59] LABS: BLOOD UREA NITROGEN 15.8 mg/dL (7-18)
[2020-11-05 09:00] LABS: BILIRUBIN,TOTAL 0.2 mg/dL (0.2-1)
[2020-11-05 09:02] LABS: CREATININE 0.5 mg/dL (0.55-1.3)
[2020-11-05] MEDS ORDERED: DOXYCYCLINE HYCLATE 100 MG VIAL ONE (09:36)
[2020-11-05] MEDS ORDERED: DEXTROSE 5%-WATER 100 ML IVPB ONE (09:36)
[2020-11-05] MEDS: DIVALPROEX SODIUM 125 MG SPRINKLE CAPS GT SCH ×2 (09:42→21:20)
[2020-11-05] MEDS: levETIRAcetam 500 MG/5 ML INJECTION VIAL IVPB SCH ×2 (09:42→21:22)
[2020-11-05] MEDS: DOXYCYCLINE INJECTION 100 MG in DEXTROSE 5%-WATER 100 ML IVPB SCH (09:43)
[2020-11-05] MEDS: LORazepam 2 MG/ML SDV VIAL IVPUSH PRN ×2 (15:17→21:25)
[2020-11-05] MEDS ORDERED: FUROSEMIDE 40 MG/4 ML INJECTABLE VIAL IVPUSH ONE (15:49)
[2020-11-05] MEDS ORDERED: diazePAM 5 MG TABLET PO ONE (15:50)
[2020-11-05] MEDS ORDERED: PT OWN MED DRAWER 7, Y5N ONE (17:10)
[2020-11-05] MEDS: SCOPOLAMINE HYDROBROMIDE 1 PATCH PATCH.TD72 TD SCH (18:50)
[2020-11-05] MEDS: ATORVASTATIN CA 40 MG TABLET (FP) PEG SCH (21:24)
[2020-11-06] MEDS ORDERED: DEXTROSE 5%-WATER - 50 ML IVPB ONE ×2 (01:04→09:11)
[2020-11-06] MEDS ORDERED: PIPERACILLIN/TAZOBACTAM 3.375 GM VIAL IVPB ONE ×2 (01:04→09:10)
[2020-11-06] MEDS: PIPERACILLIN/TAZOB 3.375 GM 3.375 GM in DEXTROSE 5%-WATER - 50 ML IVPB SCH ×2 (01:32→09:24)
[2020-11-06] MEDS: HEPARIN NA (PORCINE) 5,000 UNITS/ML 1ML VIAL SQ SCH ×3 (06:17→21:17)
[2020-11-06] MEDS: DIVALPROEX SODIUM 125 MG SPRINKLE CAPS GT SCH ×2 (09:23→21:19)
[2020-11-06] MEDS ORDERED: levETIRAcetam 500 MG/5 ML ORAL SOLUTION (UNIT-DOSE CUPS) PO SCH (10:00)
[2020-11-06] MEDS ORDERED: levETIRAcetam 500 MG/5 ML ORAL SOLUTION (UNIT-DOSE CUPS) PEG SCH (10:26)
[2020-11-06] MEDS: levETIRAcetam 500 MG/5 ML ORAL SOLUTION (UNIT-DOSE CUPS) PEG SCH ×2 (11:14→21:19)
[2020-11-06] MEDS: ATORVASTATIN CA 40 MG TABLET (FP) PEG SCH (21:20)
[2020-11-07] MEDS: HEPARIN NA (PORCINE) 5,000 UNITS/ML 1ML VIAL SQ SCH ×3 (05:40→21:04)
[2020-11-07] MEDS ORDERED: AMINO ACIDS/PROTEIN HYDROLYS 30 ML LIQUID.PKT PO SCH (08:00)
[2020-11-07 11:01] LABS: BASO % 0.7 % (0-2.0); EOS % 3.8 % (0-4.5); HEMATOCRIT 25.2 % (35.4-49); HEMOGLOBIN 8.5 GM/dL (11.7-16.9); LYMPH % 20.5 % (8-40); MCH 29.8 pg (25.7-33.7); MCHC 33.6 g/dl (32.0-35.9); MEAN CELL VOLUME 88.8 fl (80-96); MEAN PLT VOLUME 7.5 fl (7.5-11.1); MONO % 10.2 % (3.8-10.2); NEUT % 64.8 % (42.8-82.8); PLATELET COUNT 294 K/MM3 (134-434); RBC 2.84 M/mm3 (4.00-5.60); RDW 18.6 % (11.9-15.9); WHITE BLOOD COUNT 6.8 K/mm3 (4.0-10.0)
[2020-11-07 11:13] LABS: CALCIUM 8.3 mg/dL (8.5-10.1)
[2020-11-07] MEDS ORDERED: PT OWN MED DRAWER 7, Y5N ONE (11:13)
[2020-11-07 11:14] LABS: ALBUMIN 1.5 g/dl (3.4-5.0); BLOOD UREA NITROGEN 19.1 mg/dL (7-18); MAGNESIUM 2.1 mg/dL (1.8-2.4)
[2020-11-07] MEDS: AMINO ACIDS/PROTEIN HYDROLYS 30 ML LIQUID.PKT GT SCH (11:15)
[2020-11-07] MEDS: DIVALPROEX SODIUM 125 MG SPRINKLE CAPS GT SCH ×2 (11:15→21:05)
[2020-11-07] MEDS: levETIRAcetam 500 MG/5 ML ORAL SOLUTION (UNIT-DOSE CUPS) PEG SCH ×2 (11:15→21:05)
[2020-11-07 11:17] LABS: PHOSPHOROUS 2.7 mg/dL (2.5-4.9)
[2020-11-07 11:18] LABS: CREATININE 0.4 mg/dL (0.55-1.3)
[2020-11-07 11:19] LABS: BILIRUBIN,TOTAL 0.2 mg/dL (0.2-1); TOT PROT 4.8 g/dl (6.4-8.2)
[2020-11-07] MEDS: BACITRACIN 15 GM TUBE TOPICAL OINTMENT TP SCH ×2 (14:15→21:05)
[2020-11-07] MEDS: ATORVASTATIN CA 40 MG TABLET (FP) PEG SCH (21:05)
[2020-11-08] MEDS: HEPARIN NA (PORCINE) 5,000 UNITS/ML 1ML VIAL SQ SCH ×3 (06:15→22:04)
[2020-11-08] MEDS: DIVALPROEX SODIUM 125 MG SPRINKLE CAPS GT SCH ×2 (09:25→22:05)
[2020-11-08] MEDS: BACITRACIN 15 GM TUBE TOPICAL OINTMENT TP SCH ×2 (09:26→22:04)
[2020-11-08] MEDS: levETIRAcetam 500 MG/5 ML ORAL SOLUTION (UNIT-DOSE CUPS) PEG SCH ×2 (09:26→22:04)
[2020-11-08] MEDS: AMINO ACIDS/PROTEIN HYDROLYS 30 ML LIQUID.PKT GT SCH (09:26)
[2020-11-08] MEDS: LORazepam 2 MG/ML SDV VIAL IVPUSH PRN (10:30)
[2020-11-08] MEDS ORDERED: SODIUM CHLORIDE 250 ML IV STA (14:04)
[2020-11-08] MEDS ORDERED: PT OWN MED DRAWER 7, Y5N ONE (16:44)
[2020-11-08] MEDS: SCOPOLAMINE HYDROBROMIDE 1 PATCH PATCH.TD72 TD SCH (16:47)
[2020-11-08 17:05] VITALS: TEMP 98.8
[2020-11-08 20:30] VITALS: BP 140/60; PULSE 61
[2020-11-08] MEDS: ATORVASTATIN CA 40 MG TABLET (FP) PEG SCH (22:05)
== END 2020-11-09 00:15 | disposition hospice, inpatient (51) | DRG 101 ==
LOC: JER 14:05 → JERBED 15:31 → JICU 10-31 17:12 → J8W 11-02 17:10
PROVIDERS: ADMIT Internal Medicine; ATTEND Student in an Organized Health Care Education/Training Program
DX: G40.411 Other generalized epilepsy and epileptic syndromes, intractable, with status epilepticus (principal); F03.90 Unspecified dementia, unspecified severity, without behavioral disturbance, psychotic disturbance, mood disturbance, and anxiety; I10 Essential (primary) hypertension; Z93.1 Gastrostomy status; K11.23 Chronic sialoadenitis; D64.9 Anemia, unspecified; R00.1 Bradycardia, unspecified; R22.1 Localized swelling, mass and lump, neck; E87.70 Fluid overload, unspecified; L89.152 Pressure ulcer of sacral region, stage 2; D32.1 Benign neoplasm of spinal meninges; N40.0 Benign prostatic hyperplasia without lower urinary tract symptoms; R62.7 Adult failure to thrive; E78.5 Hyperlipidemia, unspecified; Z68.24 Body mass index [BMI] 24.0-24.9, adult
CPT/HCPCS: 36415; 70450-TC; 70551-TC; 71045-TC-FY; 80048; 80053; 80307; 81003; 82550; 82728; 82803; 82962; 83540; 83550; 83605; 83735; 84100; 84484; 85025; 85027; 85045; 85610; 85730; 87040; 87086; 93005; 93010; 93971; 95816; 99285-25; C9803; J1644; U0003; U0005